=== PATIENT | female | born 1940 | race Caucasian/White ===

== ENCOUNTER → 2016-07-27 | Outpatient (CLI) | payer MEDICARE ==
--- NOTE | 2016-07-27 14:22 | REPMRS ---
Patient History The patient states she had a clinical breast exam in 07/07 Patient is postmenopausal, has history of cancer in the left breast at age 53, and had previous chemotherapy at age 53. No known family history of cancer. Malignant mastectomy of the left breast, 1993. Took tamoxifen for 5 years. Digital Woman Screen Mammo: July 27, 2016 - Exam #: [id number] Bilateral CC and MLO view(s) were taken. Technologist: Paola Dominguez, Technologist Prior study comparison: July 27, 2015, digital woman screen mammo performed at [facility]. July 23, 2014, digital woman screen mammo performed at [facility]. July 21, 2013, right breast bilat screen digital mammo, performed at [facility] ([facility]). FINDINGS: There are scattered fibroglandular densities. There has been no change in the appearance of the right breast parenchyma in the interval since the prior examination. No mass, architectural distortion, or microcalcific cluster has developed. No suspicious finding. ASSESSMENT: BI-RADS/ACR category 2 mammogram. Benign finding(s). Recommendation Routine screening mammogram in 1 year. This mammogram was interpreted with the aid of an FDA-approved computer-aided dectection system. Electronically Signed By: Finn Brock MD 07/27/16 9050
== END ==
LOC: M WHC 10:02
PROVIDERS: ATTEND Nurse Practitioner Family
DX: Z12.31 Encounter for screening mammogram for malignant neoplasm of breast (principal); Z85.3 Personal history of malignant neoplasm of breast; Z78.0 Asymptomatic menopausal state

== ENCOUNTER → 2016-08-08 | Outpatient (REF) | payer MEDICARE ==
[2016-08-08 11:59] LABS: ALBUMIN 3.6 GM/DL (3.2-5.2); ALKALINE PHOSPHATASE 59 U/L (45-117); ALT/SGPT 23 U/L (12-78); ANION GAP 4 MEQ/L (8-16); AST/SGOT 21 U/L (15-37); BILIRUBIN,TOTAL 0.5 MG/DL (0.2-1.0); BLOOD UREA NITROGEN 23 MG/DL (7-18); CARBON DIOXIDE LEVEL 31 MEQ/L (21-32); CHLORIDE LEVEL 106 MEQ/L (98-107); CREATININE FOR GFR 0.94 MG/DL (0.55-1.02); GLOMERULAR FILTRATION RATE > 60.0 (>39); GLUCOSE, FASTING 90 MG/DL (83-110); POTASSIUM SERUM 4.8 MEQ/L (3.5-5.1); SODIUM LEVEL 141 MEQ/L (136-145); TOTAL PROTEIN 6.6 GM/DL (6.4-8.2)
== END ==
LOC: M SFHCPLAZ 08:54
PROVIDERS: ATTEND Family Medicine
DX: E55.9 Vitamin D deficiency, unspecified (principal); R73.01 Impaired fasting glucose; E03.9 Hypothyroidism, unspecified

== ENCOUNTER → 2017-01-02 | Outpatient (CLI) | payer MEDICARE ==
--- NOTE | 2017-01-02 12:28 | REP ---
Clinical: Cervicalgia. Technique: AP, lateral, flexion/extension, bilateral oblique, and open-mouth views of the cervical spine. Findings: Advanced multilevel degenerative changes include osteophytosis, endplate sclerosis, disc space narrowing and facet arthropathy. Alignment and lordosis is maintained. There is no evidence for acute fracture / compression injury or subluxation. Open mouth view demonstrates normal C1-C2 articulation and odontoid process. Partially calcified left thyroid cyst suggested. Impression: 1. Advanced multilevel degenerative changes. No evidence for acute fracture / compression injury or subluxation. 2. Possible partially calcified left thyroid cyst. Signed by Jeremias Grover MD 01/02/2017 12:19 P
== END ==
LOC: M WUC 11:56
PROVIDERS: ATTEND Physician Assistant
DX: M54.2 Cervicalgia (principal)

== ENCOUNTER → 2017-01-15 | Outpatient (REF) | payer MEDICARE ==
[2017-01-15 14:02] LABS: CHOLESTEROL LEVEL 237 MG/DL (<200); TRIGLYCERIDES LEVEL 194 MG/DL (<150)
== END ==
LOC: M SFHCPLAZ 10:55
PROVIDERS: ATTEND Family Medicine
DX: E78.5 Hyperlipidemia, unspecified (principal); R73.01 Impaired fasting glucose
CPT/HCPCS: 36415; 80061; 81001; 82043; 82550; 83036; 86140; G0463

== ENCOUNTER → 2017-06-08 | Outpatient (REF) | payer MEDICARE ==
[2017-06-08 13:25] LABS: BASO # 0.1 10^3/uL (0.0-0.2); BASO % 1.2 % (0.0-1.0); EOS # 0.2 10^3/uL (0.0-0.50); EOS % 3.2 % (0.0-3.0); HEMATOCRIT 44.6 % (36.0-47.0); HEMOGLOBIN 14.8 g/dl (12.0-16.0); IMMATURE GRANULOCYTE % 0.3 % (0-3.0); LYMPH # 2.1 10^3/uL (1.5-4.5); LYMPH % 28.2 % (24.0-44.0); MEAN CORPUSCULAR HEMOGLOBIN 29.7 pg (27.0-33.0); MEAN CORPUSCULAR HGB CONC 33.2 g/dl (32.0-36.5); MEAN CORPUSCULAR VOLUME 89.6 fl (80.0-96.0); MONO # 0.7 10^3/uL (0.0-0.8); MONO % 9.1 % (0.0-5.0); NEUTROPHILS # 4.2 10^3/uL (1.8-7.7); PLATELET COUNT, AUTOMATED 259 10^3/uL (150-450); RED BLOOD COUNT 4.98 10^6/uL (4.00-5.40); RED CELL DISTRIBUTION WIDTH 13.2 % (11.5-14.5); WHITE BLOOD COUNT 7.3 10^3/uL (4.0-10.0)
[2017-06-08 13:48] LABS: ESTIMATED AVERAGE GLUCOSE 120 MG/DL (60-110); HEMOGLOBIN A1c 5.8 %
[2017-06-08 13:49] LABS: APPEARANCE, URINE CLEAR (CLEAR); BACTERIA, URINE AUTO NEGATIVE (NEGATIVE); BILIRUBIN, URINE AUTO NEGATIVE (NEGATIVE); BLOOD, URINE BLOOD NEGATIVE (NEGATIVE); COLOR, URINE YELLOW (YELLOW); GLUCOSE, URINE (UA) AUTO NEGATIVE (NEGATIVE); KETONE, URINE AUTO NEGATIVE (NEGATIVE); LEUKOCYTE ESTERASE, URINE AUTO NEGATIVE (NEGATIVE); MUCUS, URINE SMALL (NEGATIVE); NITRITE, URINE AUTO NEGATIVE (NEGATIVE); PROTEIN, URINE AUTO NEGATIVE (NEGATIVE); RBC, URINE AUTO 4 /HPF (0-3); SPECIFIC GRAVITY URINE AUTO 1.021 (1.002-1.035); SQUAMOUS EPITHELIAL CELL UR AU 1 /HPF (0-6); UROBILINOGEN, URINE AUTO 0.2 mg/dL (0.0-2.0); WBC, URINE AUTO 0 /HPF (0-3)
[2017-06-08 14:03] LABS: PTH INTACT 66.5 PG/ML (18.5-88.0); TOTAL 25(OH) VITAMIN D 32.9 NG/ML (30.0-100.0)
[2017-06-08 14:07] LABS: ALBUMIN 3.7 GM/DL (3.2-5.2); ALBUMIN/GLOBULIN RATIO 1.16 (1.00-1.93); ALKALINE PHOSPHATASE 66 U/L (45-117); ALT/SGPT 30 U/L (12-78); ANION GAP 6 MEQ/L (8-16); AST/SGOT 25 U/L (7-37); BILIRUBIN,TOTAL 0.5 MG/DL (0.2-1.0); BLOOD UREA NITROGEN 18 MG/DL (7-18); CALCIUM LEVEL 8.9 MG/DL (8.8-10.2); CARBON DIOXIDE LEVEL 31 MEQ/L (21-32); CHLORIDE LEVEL 105 MEQ/L (98-107); CREATININE FOR GFR 0.86 MG/DL (0.55-1.30); FREE T4 1.07 NG/DL (0.76-1.46); GLOMERULAR FILTRATION RATE > 60.0 (>39); GLUCOSE, FASTING 78 MG/DL (70-100); POTASSIUM SERUM 4.6 MEQ/L (3.5-5.1); SODIUM LEVEL 142 MEQ/L (136-145); TOTAL PROTEIN 6.9 GM/DL (6.4-8.2)
[2017-06-09 10:10] LABS: H PYLORI SERUM QUANT IgG ABY 0.25 (0.00-0.79)
== END ==
LOC: M SFHCPLAZ 11:06
DX: E03.9 Hypothyroidism, unspecified (principal); R73.01 Impaired fasting glucose; E55.9 Vitamin D deficiency, unspecified; M17.0 Bilateral primary osteoarthritis of knee; R31.29 Other microscopic hematuria
CPT/HCPCS: 84443

== ENCOUNTER → 2017-06-21 | Outpatient (CLI) | payer MEDICARE ==
[2017-06-21 13:09] LABS: INR 1.04; PROTHROMBIN TIME 13.7 SECONDS (12.4-14.5)
[2017-06-21 13:51] LABS: ERYTHROCYTE SEDIMENTATION RATE 5 mm/hr (0-30)
== END ==
LOC: M ADMPAT 10:24
DX: M17.11 Unilateral primary osteoarthritis, right knee (principal); Z01.818 Encounter for other preprocedural examination; Z79.01 Long term (current) use of anticoagulants; Z79.899 Other long term (current) drug therapy
CPT/HCPCS: 71046

== ENCOUNTER 2017-07-03 07:17 | Inpatient (IN) | payer MEDICARE ==
[2017-07-03] MEDS: ACETAMINOPHEN 500 MG TAB PO (07:45)
[2017-07-03] MEDS: LR 1,000 ML IV ×3 (08:16→12:45)
[2017-07-03] MEDS ORDERED: fentaNYL 100 MCG/2 ML INJECTION (J3010) As Ordered (08:26)
[2017-07-03] MEDS ORDERED: MIDAZOLAM INJ 2 MG/2 ML VIAL (J2250) As Ordered ×3 (08:26→10:31)
[2017-07-03] MEDS: MIDAZOLAM INJ 2 MG/2 ML VIAL (J2250) IV (08:57)
[2017-07-03] MEDS: fentaNYL 100 MCG/2 ML INJECTION (J3010) IV (08:57)
[2017-07-03] MEDS: CitaloPRAM (CeleXA) 10 MG TABLET PO (09:00)
[2017-07-03] MEDS: EPINEPHrine INJ 1 MG/ML 1ML AMP As Ordered ×2 (10:05→11:05)
[2017-07-03] MEDS: LIDOCAINE 1% SDV INJ 30 ML VIAL As Ordered (10:22)
[2017-07-03] MEDS ORDERED: PHENYLEPHRINE INJ 10MG/ML VIAL (J2370) As Ordered (10:38)
[2017-07-03] MEDS ORDERED: PROPOFOL 200 MG/20 ML VIAL As Ordered (10:42)
[2017-07-03] MEDS ORDERED: LIDOCAINE 2% INJ 100 MG/5 ML SYRINGE As Ordered (10:49)
[2017-07-03] MEDS ORDERED: dexameTHASONE 10 MG/1 ML VIAL PRES.FREE (J1100) (10:51)
[2017-07-03] MEDS ORDERED: EPINEPHrine INJ 1 MG/ML 1ML AMP (10:51)
[2017-07-03] MEDS ORDERED: ROPIvacaine 0.5% 30 ML INJECTION (J2795 PER 1MG) (10:51)
[2017-07-03] MEDS: TRANEXAMIC ACID 100 MG/ML 10ML VIAL As Ordered (11:05)
[2017-07-03] MEDS: ceFAZolin 1GM INJ (J0690 PER 500MG) As Ordered (11:06)
[2017-07-03] MEDS: BUPIVACAINE HCL 0.25% 30 ML VIAL As Ordered (11:46)
[2017-07-03] MEDS: BUPIVACAINE LIPOSOME/PF 1.3% 20 ML VIAL (13.3MG/ML)(EXPAREL) As Ordered (11:47)
[2017-07-03] MEDS ORDERED: MORPHINE 1MG/ML IN 0.9% NACL 100ML IV BAG As Ordered (12:15)
[2017-07-03] MEDS ORDERED: ONDANSETRON 4MG/2ML VIAL (J2405) As Ordered (12:22)
[2017-07-03] MEDS: ONDANSETRON 4MG/2ML VIAL (J2405) IV (12:35)
[2017-07-03] MEDS ORDERED: FLEET ENEMA PR (12:45)
[2017-07-03] MEDS ORDERED: fentaNYL 100 MCG/2 ML INJECTION (J3010) IV (12:45)
[2017-07-03] MEDS ORDERED: ACETAMINOPHEN TAB 650MG DOSE (2X325MG) PO (12:45)
[2017-07-03] MEDS ORDERED: diphenhydrAMINE INJ 50MG/ML VIAL (J1200) IV (13:00)
[2017-07-03] MEDS ORDERED: NALOXONE INJ 0.4 MG/1 ML VIAL (J2310) IV (13:00)
[2017-07-03] MEDS ORDERED: MORPHINE 1MG/ML IN 0.9% NACL 100ML IV BAG IV (13:00)
[2017-07-03] MEDS ORDERED: EPIDURAL/PCA KEYS XX (13:00)
[2017-07-03] MEDS ORDERED: NALBUPHINE HCL 10 MG/ML AMP (J2300) IV (13:00)
[2017-07-03] MEDS ORDERED: ONDANSETRON 4MG/2ML VIAL (J2405) IV (13:00)
[2017-07-03] MEDS: WARFARIN SOD 5 MG TAB PO (17:17)
[2017-07-03] MEDS: ROSUVASTATIN 10 MG TAB (CRESTOR) PO (20:48)
[2017-07-04] MEDS: LR 1,000 ML IV (00:07)
[2017-07-04] MEDS: LEVOTHYROXINE 100MCG TABLET (0.1MG) PO (06:09)
[2017-07-04 07:03] LABS: HEMATOCRIT 37.6 % (36.0-47.0); HEMOGLOBIN 12.7 g/dl (12.0-16.0); MEAN CORPUSCULAR HEMOGLOBIN 29.9 pg (27.0-33.0); MEAN CORPUSCULAR HGB CONC 33.8 g/dl (32.0-36.5); MEAN CORPUSCULAR VOLUME 88.5 fl (80.0-96.0); PLATELET COUNT, AUTOMATED 223 10^3/uL (150-450); RED BLOOD COUNT 4.25 10^6/uL (4.00-5.40); RED CELL DISTRIBUTION WIDTH 13.6 % (11.5-14.5); WHITE BLOOD COUNT 13.4 10^3/uL (4.0-10.0)
[2017-07-04 07:14] LABS: INR 1.27; PROTHROMBIN TIME 16.2 SECONDS (12.4-14.5)
[2017-07-04 07:24] LABS: ANION GAP 7 MEQ/L (8-16); BLOOD UREA NITROGEN 23 MG/DL (7-18); CALCIUM LEVEL 8.2 MG/DL (8.8-10.2); CARBON DIOXIDE LEVEL 26 MEQ/L (21-32); CHLORIDE LEVEL 107 MEQ/L (98-107); CREATININE FOR GFR 0.89 MG/DL (0.55-1.30); GLOMERULAR FILTRATION RATE > 60.0 (>39); GLUCOSE, FASTING 124 MG/DL (70-100); POTASSIUM SERUM 4.1 MEQ/L (3.5-5.1); SODIUM LEVEL 140 MEQ/L (136-145)
[2017-07-04] MEDS: MIRALAX *UNIT DOSE* 17GM PACKET PO (08:33)
[2017-07-04] MEDS: MOM 30ML SUSPENSION UDC PO (08:33)
[2017-07-04] MEDS: SENOKOT S TAB PO ×2 (08:34→19:42)
[2017-07-04] MEDS: ONDANSETRON 4 MG TAB (S0181) PO ×2 (08:34→12:42)
[2017-07-04] MEDS: PERCOCET 5MG/325MG TAB PO ×3 (08:34→19:43)
[2017-07-04] MEDS: CitaloPRAM (CeleXA) 10 MG TABLET PO (08:34)
[2017-07-04] MEDS: WARFARIN SOD 5 MG TAB PO (17:45)
[2017-07-04] MEDS: ROSUVASTATIN 10 MG TAB (CRESTOR) PO (19:42)
[2017-07-04] MEDS: NS 500 ML IV (22:06)
[2017-07-05] MEDS: PERCOCET 5MG/325MG TAB PO ×4 (00:38→17:13)
[2017-07-05] MEDS: LEVOTHYROXINE 100MCG TABLET (0.1MG) PO (05:22)
[2017-07-05 06:06] LABS: HEMATOCRIT 34.8 % (36.0-47.0); HEMOGLOBIN 11.6 g/dl (12.0-16.0); MEAN CORPUSCULAR HEMOGLOBIN 30.1 pg (27.0-33.0); MEAN CORPUSCULAR HGB CONC 33.3 g/dl (32.0-36.5); MEAN CORPUSCULAR VOLUME 90.4 fl (80.0-96.0); PLATELET COUNT, AUTOMATED 192 10^3/uL (150-450); RED BLOOD COUNT 3.85 10^6/uL (4.00-5.40)
[2017-07-05 06:16] LABS: INR 1.72; PROTHROMBIN TIME 20.7 SECONDS (12.4-14.5)
[2017-07-05 06:31] LABS: ANION GAP 6 MEQ/L (8-16); BLOOD UREA NITROGEN 24 MG/DL (7-18); CALCIUM LEVEL 7.9 MG/DL (8.8-10.2); CARBON DIOXIDE LEVEL 30 MEQ/L (21-32); CHLORIDE LEVEL 103 MEQ/L (98-107); CREATININE FOR GFR 0.83 MG/DL (0.55-1.30); GLOMERULAR FILTRATION RATE > 60.0 (>39); GLUCOSE, FASTING 131 MG/DL (70-100); POTASSIUM SERUM 3.8 MEQ/L (3.5-5.1); SODIUM LEVEL 139 MEQ/L (136-145)
[2017-07-05] MEDS: MOM 30ML SUSPENSION UDC PO (09:39)
[2017-07-05] MEDS: MIRALAX *UNIT DOSE* 17GM PACKET PO (09:39)
[2017-07-05] MEDS: SENOKOT S TAB PO ×2 (09:40→20:04)
[2017-07-05] MEDS: CitaloPRAM (CeleXA) 10 MG TABLET PO (09:40)
[2017-07-05] MEDS: ONDANSETRON 4 MG TAB (S0181) PO ×2 (09:41→17:13)
[2017-07-05] MEDS: WARFARIN SOD 5 MG TAB PO (17:13)
[2017-07-05] MEDS: PREVNAR 13 VACCINE SYRINGE (CPT CODE:90670) IM (17:15)
[2017-07-05] MEDS: ROSUVASTATIN 10 MG TAB (CRESTOR) PO (20:04)
[2017-07-05] MEDS: NS 500 ML IV (23:00)
[2017-07-06] MEDS: PERCOCET 5MG/325MG TAB PO ×2 (02:07→09:56)
[2017-07-06] MEDS: LEVOTHYROXINE 100MCG TABLET (0.1MG) PO (05:54)
[2017-07-06 07:06] LABS: HEMATOCRIT 35.4 % (36.0-47.0); HEMOGLOBIN 11.8 g/dl (12.0-16.0); MEAN CORPUSCULAR HEMOGLOBIN 30.2 pg (27.0-33.0); MEAN CORPUSCULAR HGB CONC 33.3 g/dl (32.0-36.5); MEAN CORPUSCULAR VOLUME 90.5 fl (80.0-96.0); PLATELET COUNT, AUTOMATED 181 10^3/uL (150-450); RED BLOOD COUNT 3.91 10^6/uL (4.00-5.40); WHITE BLOOD COUNT 8.7 10^3/uL (4.0-10.0)
[2017-07-06 07:24] LABS: INR 2.24; PROTHROMBIN TIME 25.6 SECONDS (12.4-14.5)
[2017-07-06 07:25] LABS: ANION GAP 4 MEQ/L (8-16); BLOOD UREA NITROGEN 15 MG/DL (7-18); CALCIUM LEVEL 7.7 MG/DL (8.8-10.2); CARBON DIOXIDE LEVEL 31 MEQ/L (21-32); CHLORIDE LEVEL 107 MEQ/L (98-107); CREATININE FOR GFR 0.77 MG/DL (0.55-1.30); GLOMERULAR FILTRATION RATE > 60.0 (>39); GLUCOSE, FASTING 101 MG/DL (70-100); POTASSIUM SERUM 4.2 MEQ/L (3.5-5.1); SODIUM LEVEL 142 MEQ/L (136-145)
[2017-07-06] MEDS: MIRALAX *UNIT DOSE* 17GM PACKET PO (09:00)
[2017-07-06] MEDS: SENOKOT S TAB PO (09:55)
[2017-07-06] MEDS: CitaloPRAM (CeleXA) 10 MG TABLET PO (09:55)
[2017-07-06] MEDS: MOM 30ML SUSPENSION UDC PO (09:56)
== END 2017-07-06 16:02 | disposition home or self-care (01) | DRG 470 ==
LOC: M OR 07:17 → M MS5PR 13:15
PROC: 0SRC0J9 Replacement of Right Knee Joint with Synthetic Substitute, Cemented, Open Approach (ICD-10-PCS; principal; 2017-07-03 09:50)
DX: M17.11 Unilateral primary osteoarthritis, right knee (principal); E03.9 Hypothyroidism, unspecified; E78.00 Pure hypercholesterolemia, unspecified; R73.01 Impaired fasting glucose; E78.5 Hyperlipidemia, unspecified; Z85.3 Personal history of malignant neoplasm of breast; Z90.12 Acquired absence of left breast and nipple; Z96.651 Presence of right artificial knee joint; Z98.41 Cataract extraction status, right eye; Z98.42 Cataract extraction status, left eye; Z87.891 Personal history of nicotine dependence; Z79.899 Other long term (current) drug therapy; Z79.82 Long term (current) use of aspirin

== ENCOUNTER → 2017-07-09 | Outpatient (REF) | payer MEDICARE ==
[2017-07-09 14:13] LABS: INR 1.86
== END ==
LOC: M SHH 13:56
DX: Z51.81 Encounter for therapeutic drug level monitoring (principal); Z79.01 Long term (current) use of anticoagulants
CPT/HCPCS: 85610

== ENCOUNTER → 2017-07-12 | Outpatient (REF) | payer MEDICARE ==
[2017-07-12 15:42] LABS: INR 2.23; PROTHROMBIN TIME 25.5 SECONDS (12.4-14.5)
== END ==
LOC: M SHH 15:00
DX: Z79.01 Long term (current) use of anticoagulants (principal)
CPT/HCPCS: 85610

== ENCOUNTER → 2017-07-16 | Outpatient (REF) | payer MEDICARE ==
[2017-07-16 10:56] LABS: INR 1.88; PROTHROMBIN TIME 22.3 SECONDS (12.4-14.5)
== END ==
LOC: M LABDRAW1 09:47
DX: Z79.899 Other long term (current) drug therapy (principal); Z79.01 Long term (current) use of anticoagulants
CPT/HCPCS: 85610

== ENCOUNTER → 2017-07-19 | Outpatient (REF) | payer MEDICARE ==
[2017-07-19 15:29] LABS: PROTHROMBIN TIME 18.5 SECONDS (12.4-14.5)
== END ==
LOC: M SHH 15:04
DX: Z79.01 Long term (current) use of anticoagulants (principal)
CPT/HCPCS: 85610

== ENCOUNTER → 2017-07-23 | Outpatient (REF) | payer MEDICARE ==
[2017-07-23 19:19] LABS: INR 1.54; PROTHROMBIN TIME 18.9 SECONDS (12.4-14.5)
== END ==
LOC: M SHH 17:21
DX: Z51.81 Encounter for therapeutic drug level monitoring (principal); Z79.899 Other long term (current) drug therapy
CPT/HCPCS: 85610

== ENCOUNTER → 2017-07-26 | Outpatient (REF) | payer MEDICARE ==
[2017-07-26 15:38] LABS: INR 1.88; PROTHROMBIN TIME 22.2 SECONDS (12.4-14.5)
== END ==
LOC: M SHH 15:18
DX: Z79.01 Long term (current) use of anticoagulants (principal)
CPT/HCPCS: 85610

== ENCOUNTER → 2017-10-10 | Outpatient (CLI) | payer MEDICARE | LOC: M WHC 11:13 | DX: Z12.31 Encounter for screening mammogram for malignant neoplasm of breast (principal); Z85.3 Personal history of malignant neoplasm of breast; Z90.12 Acquired absence of left breast and nipple | CPT/HCPCS: 77067 ==

== ENCOUNTER → 2018-04-02 | Outpatient (REF) | payer MEDICARE ==
[2018-04-02 12:13] LABS: ALBUMIN 3.8 GM/DL (3.2-5.2); ALBUMIN/GLOBULIN RATIO 1.09 (1.00-1.93); ALKALINE PHOSPHATASE 73 U/L (45-117); ALT/SGPT 26 U/L (12-78); ANION GAP 7 MEQ/L (8-16); AST/SGOT 24 U/L (7-37); BILIRUBIN,TOTAL 0.5 MG/DL (0.2-1.0); BLOOD UREA NITROGEN 17 MG/DL (7-18); CALCIUM LEVEL 8.9 MG/DL (8.8-10.2); CARBON DIOXIDE LEVEL 28 MEQ/L (21-32); CHLORIDE LEVEL 103 MEQ/L (98-107); CREATININE FOR GFR 0.84 MG/DL (0.55-1.30); GLOMERULAR FILTRATION RATE > 60.0 (>39); GLUCOSE, FASTING 92 MG/DL (70-100); POTASSIUM SERUM 4.1 MEQ/L (3.5-5.1); SODIUM LEVEL 138 MEQ/L (136-145); TOTAL PROTEIN 7.3 GM/DL (6.4-8.2)
[2018-04-02 12:22] LABS: PTH INTACT 59.2 PG/ML (18.5-88.0); TOTAL 25(OH) VITAMIN D 49.3 NG/ML (30.0-100.0)
[2018-04-02 12:28] LABS: ESTIMATED AVERAGE GLUCOSE 126 MG/DL (60-110)
[2018-04-02 18:53] LABS: APPEARANCE, URINE CLEAR (CLEAR); BACTERIA, URINE AUTO NEGATIVE (NEGATIVE); BILIRUBIN, URINE AUTO NEGATIVE (NEGATIVE); BLOOD, URINE BLOOD 1+ (NEGATIVE); COLOR, URINE YELLOW (YELLOW); GLUCOSE, URINE (UA) AUTO NEGATIVE (NEGATIVE); KETONE, URINE AUTO NEGATIVE (NEGATIVE); LEUKOCYTE ESTERASE, URINE AUTO NEGATIVE (NEGATIVE); NITRITE, URINE AUTO NEGATIVE (NEGATIVE); PROTEIN, URINE AUTO NEGATIVE (NEGATIVE); RBC, URINE AUTO 3 /HPF (0-3); SPECIFIC GRAVITY URINE AUTO 1.015 (1.002-1.035); SQUAMOUS EPITHELIAL CELL UR AU 0 /HPF (0-6); UROBILINOGEN, URINE AUTO 0.2 mg/dL (0.0-2.0); WBC, URINE AUTO 1 /HPF (0-3)
[2018-04-02 22:31] LABS: MALB URINE SIEMENS 14.3 MG/L
[2018-04-03 14:21] LABS: INSULIN LEVEL 17.6 uIU/mL (2.6-24.9)
== END ==
LOC: M SFHCPLAZ 10:15
DX: E55.9 Vitamin D deficiency, unspecified (principal); R73.01 Impaired fasting glucose
CPT/HCPCS: 83525

== ENCOUNTER → 2018-04-08 | Outpatient (CLI) | payer MEDICARE ==
[~2018-04-08] MED LIST: ASPI1TAB PO; CALCTAB7 PO; CELE10TA PO; COUM2.5T17 PO; CRES40TA PO; FISH100049 PO; FLON1SPR; LEVO100T5; PERC5TAB12 PO; SIMV40TA2; VITA100067 PO
--- NOTE | 2018-04-09 08:12 | REP ---
Duplex carotid sonography: History: Bilateral carotid artery stenosis. Findings: Retrograde flow is noted in the right vertebral artery consistent with subclavian steal phenomenon. Antegrade flow was observed in the left vertebral artery. Right carotid: The right common carotid artery is unremarkable on two-dimensional scanning. There is focal soft plaquing in the proximal ICA and bulb on the right side on two-dimensional scanning. Color flow and spectral Doppler interrogation show normal velocities. The right ICA Doppler waveform is abnormal. Question distal ICA disease. Velocity chart right carotid: Right CCA PSV 33 cm/s Right ICA PSV 41 AUSTEN 0 Right ECA PSV 36 Right ICA/CCA ratio normal 1.2. Impression: 16-49% category narrowing in the right ICA by Doppler velocity criteria. Abnormal ICA Doppler waveform, question distal disease. Left carotid: The left common carotid artery is unremarkable on two-dimensional scanning. There is mild soft plaquing in the bulb and proximal ICA on the left side. Color flow and spectral Doppler interrogation on the left show slightly increased systolic velocity in the ICA. Velocity chart left carotid: Left CCA PSV 90 cm/s Left ICA PSV 137 AUSTEN 21 Left ECA PSV 109 Left ICA/CCA ratio normal 1.5. Impression: 16-49% category narrowing in the left ICA, probably near the upper end of this range. Vertebral flow was reversed on the right suggesting subclavian steal phenomenon. Electronically Signed by Abiodun Brock MD 04/09/2018 09:04 A
== END ==
LOC: M RAD 14:01
PROVIDERS: ATTEND Family Medicine
DX: I65.23 Occlusion and stenosis of bilateral carotid arteries (principal)

== ENCOUNTER → 2018-06-24 | Outpatient (CLI) | payer MEDICARE ==
[~2018-06-24] MED LIST changes: -LEVO100T5; +LEVO100T5 PO
[2018-06-24 09:03] LABS: HEMATOCRIT 42.3 % (36.0-47.0); HEMOGLOBIN 13.8 g/dl (12.0-15.5); MEAN CORPUSCULAR HEMOGLOBIN 29.9 pg (27.0-33.0); MEAN CORPUSCULAR HGB CONC 32.6 g/dl (32.0-36.5); MEAN CORPUSCULAR VOLUME 91.8 fl (80.0-96.0); PLATELET COUNT, AUTOMATED 241 10^3/uL (150-450); RED BLOOD COUNT 4.61 10^6/uL (4.00-5.40); WHITE BLOOD COUNT 5.8 10^3/uL (4.0-10.0)
[2018-06-24 09:30] LABS: INR 1.04; PROTHROMBIN TIME 13.8 SECONDS (12.1-14.4)
[2018-06-24 09:32] LABS: ALBUMIN 3.4 GM/DL (3.2-5.2); ALT/SGPT 31 U/L (12-78); BILIRUBIN,TOTAL 0.5 MG/DL (0.2-1.0); BLOOD UREA NITROGEN 17 MG/DL (7-18); CALCIUM LEVEL 8.6 MG/DL (8.8-10.2); CARBON DIOXIDE LEVEL 28 MEQ/L (21-32); CHLORIDE LEVEL 108 MEQ/L (98-107); CREATININE FOR GFR 0.82 MG/DL (0.55-1.30); GLOMERULAR FILTRATION RATE > 60.0 (>39); GLUCOSE, FASTING 88 MG/DL (70-100); POTASSIUM SERUM 4.4 MEQ/L (3.5-5.1); SODIUM LEVEL 143 MEQ/L (136-145); TOTAL PROTEIN 6.4 GM/DL (6.4-8.2)
[2018-06-24 09:40] LABS: ERYTHROCYTE SEDIMENTATION RATE 10 mm/hr (0-30)
--- NOTE | 2018-06-24 14:34 | ECGEPIP ---
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
--- NOTE | 2018-06-24 15:18 | REP ---
CHEST X-RAY: TWO VIEWS. HISTORY: Preoperative testing. COMPARISON STUDY: June 21, 2017 FINDINGS: The lungs are symmetrically aerated and free of infiltrate. The aorta and its major branches are calcified. Heart size is normal. Pulmonary vasculature is not increased. Pleural angles are sharp. There are degenerative changes in the thoracic spine. IMPRESSION: No active disease. Electronically Signed by Abiodun Brock MD 06/24/2018 03:26 P
== END ==
LOC: M LAB 08:17
PROVIDERS: ATTEND Orthopaedic Surgery
DX: Z01.818 Encounter for other preprocedural examination (principal); M17.12 Unilateral primary osteoarthritis, left knee; M51.34 Other intervertebral disc degeneration, thoracic region; E07.9 Disorder of thyroid, unspecified

== ENCOUNTER 2018-07-10 06:58 | Inpatient (IN) | payer MEDICARE ==
--- NOTE | 2018-07-05 13:28 | HPE ---
DATE OF ANTICIPATED ADMISSION: 07/10/2018 ATTENDING PHYSICIAN: Dr. Caraballo CHIEF COMPLAINT: Left knee pain and stiffness. HISTORY: The patient is a pleasant, 78-year-old female with progressively worsening left knee pain and stiffness. She failed to improve with conservative measures. She continues to have symptoms with weightbearing activities and activities of daily living. The patient consented for an elective left total knee arthroplasty with Dr. Caraballo for her continued symptoms. CURRENT MEDICATIONS: - meclizine 25 mg every 8 hours as needed - Synthroid 100 mcg daily - calcium with vitamin D 600/400 mg/units daily - Zyrtec 10 mg daily - Flonase 50 mcg 2 sprays in each nostril daily - vitamin D 2000 units daily - Celebrex 200 units daily - Celexa 20 mg daily - simvastatin 40 mg daily - fish oil 1200 mg daily - aspirin 81 mg daily ALLERGIES: CHANTIX. CHRONIC MEDICAL CONDITIONS: 1. Carotid artery disease. 2. ICA/vertebral stenosis. 3. Hyperlipidemia. 4. Hypothyroid. 5. Anxiety. 6. History of breast cancer with mastectomy on the left. 7. Suprapubic ventral hernia. 8. Multijoint osteoarthritis. 9. Allergic rhinitis. PAST SURGICAL HISTORY: 1. Appendectomy. 2. Bilateral blepharoplasty. 3. Colon surgery for benign mass. 4. Left breast mastectomy. 5. Dilation and curettage. 6. Bilateral cataracts. 7. Right total knee arthroplasty. FAMILY HISTORY: Noncontributory. SOCIAL HISTORY: The patient is a former smoker and occasionally uses alcohol. REVIEW OF SYSTEMS: The patient denies fevers, chills, nausea, vomiting or diarrhea. She denies chest pain, shortness of breath, lightheadedness, headaches or abdominal pain. She denies any recent upper respiratory or urinary tract infection symptoms. She continues to have left knee pain with weightbearing activities and activities of daily living. PHYSICAL EXAMINATION: GENERAL: Well-nourished, well-developed female, who appears to be in no apparent distress. She is alert, oriented and cooperative. Mood and affect are appropriate. VITAL SIGNS: Height 5 feet 3 inches, weight 162.3 pounds, temperature 97.7, blood pressure 128/84, heart rate 64, respirations 12. NECK: Supple without lymphadenopathy. HEART: Regular rate and rhythm. LUNGS: Clear to auscultation bilaterally. Breathing is regular and nonlabored. ABDOMEN: Nontender to palpation. Bowel sounds are present. MUSCULOSKELETAL: Left knee exhibits no gross abnormalities. There is tenderness along the medial joint line. The patient can only extend knee to about 5 degrees and flex to about 110 degrees. Left lower extremity strength is 5/5. No hip irritability elicited with range of motion testing. The patient's calf is soft, nontender to palpation with no palpable cords noted. She is neurovascularly intact distally. LABORATORY DATA: EKG: No active disease. LEFT KNEE X-RAY: Notable for end-stage degenerative changes. EKG: Sinus bradycardia. COMPREHENSIVE METABOLIC PROFILE: Fasting glucose of 88, BUN 17, creatinine for GFR 0.82, GFR greater than 60, sodium 143, potassium 4.4, chloride elevated at 108, carbon dioxide 28, anion gap decreased at 7, calcium decreased 8.6, AST 21, ALT 31, alkaline phosphatase 60, total bilirubin 0.5, total protein 6.4, albumin 3.4, albumin-globulin ratio 1.13. COMPLETE BLOOD COUNT: ESR 10, WBCs 5.8, RBCs 4.61, hemoglobin 13.8, hematocrit 42.3, platelets 241. Prothrombin time 13.8, INR 1.04. IMPRESSION: Left knee osteoarthritis with x-rays notable for end-stage degenerative changes. PLAN: The patient has consented for an elective left total knee arthroplasty with Dr. Caraballo for her continued symptoms. Medical optimization completed with Dr. Waters and was available for review during today's appointment. [facility] SYSTEM[facility]annet
[~2018-07-10] VITALS: Ht 162.6 cm; Wt 76.2 kg
[~2018-07-10 06:58] MED LIST changes: +LIDOCAINE 1% MDV 20ML VIAL SQ PRN
[2018-07-10] MEDS ORDERED: ACETAMINOPHEN 500 MG TAB PO ONE (07:00)
[2018-07-10] MEDS ORDERED: LR 1,000 ML IV ONE (07:00)
[2018-07-10] MEDS ORDERED: ceFAZolin 1GM INJ (J0690 PER 500MG) As Ordered ONE (07:13)
[2018-07-10] MEDS ORDERED: EPINEPHrine INJ 1 MG/ML 1ML AMP As Ordered ONE (07:14)
[2018-07-10] MEDS ORDERED: TRANEXAMIC ACID 100 MG/ML 10ML VIAL As Ordered ONE (07:14)
[2018-07-10] MEDS ORDERED: BUPIVACAINE HCL 0.25% 10 ML VIAL As Ordered ONE (07:15)
[2018-07-10] MEDS ORDERED: BUPIVACAINE LIPOSOME/PF 1.3% 20ML VIAL (13.3MG/ML)(EXPAREL)(C9290 PER1MG) As Ordered ONE (07:15)
[2018-07-10] MEDS ORDERED: MIDAZOLAM INJ 2 MG/2 ML VIAL (J2250) As Ordered ONE ×2 (08:05→08:18)
[2018-07-10] MEDS ORDERED: ONDANSETRON 4MG/2ML VIAL (J2405) As Ordered ONE (08:05)
[2018-07-10] MEDS ORDERED: fentaNYL 100 MCG/2 ML INJECTION (J3010) As Ordered ONE ×2 (08:05→08:18)
[2018-07-10] MEDS ORDERED: PROPOFOL 200 MG/20 ML VIAL As Ordered ONE (08:05)
[2018-07-10] MEDS ORDERED: LIDOCAINE 2% INJ 100 MG/5 ML SDV (FOR ANES.) As Ordered ONE (08:05)
[2018-07-10] MEDS: ePHEDrine SULFATE 25 MG/5 ML(5MG/ML) SYRINGE IV PRN ×2 (08:55→08:58)
[2018-07-10] MEDS ORDERED: MIDAZOLAM INJ 2 MG/2 ML VIAL (J2250) IV ONE (09:00)
[2018-07-10] MEDS ORDERED: MIDAZOLAM INJ 2 MG/2 ML VIAL (J2250) IV PRN (09:00)
[2018-07-10] MEDS ORDERED: fentaNYL 100 MCG/2 ML INJECTION (J3010) IV PRN ×2 (09:00→12:30)
[2018-07-10] MEDS ORDERED: fentaNYL 100 MCG/2 ML INJECTION (J3010) IV ONE (09:00)
[2018-07-10] MEDS: PHENYLephrine HCL 500 MCG/5 ML (100MCG/ML) SYRINGE (J2370) IV PRN ×2 (09:12→09:39)
[2018-07-10] MEDS ORDERED: LACTATED RINGER'S 1000 ML IV ONE (09:15)
[2018-07-10] MEDS ORDERED: dexameTHASONE 10 MG/1 ML VIAL PRES.FREE (J1100) ONE (09:40)
[2018-07-10] MEDS ORDERED: ROPIvacaine 0.5% 30 ML INJECTION (J2795 PER 1MG) ONE (09:40)
[2018-07-10] MEDS ORDERED: EPINEPHrine INJ 1 MG/ML 1ML AMP ONE (09:40)
[2018-07-10] MEDS ORDERED: BUPIVACAINE/DEXTROSE 0.75% 2 ML AMP As Ordered ONE (10:12)
[2018-07-10] MEDS ORDERED: LR 250 ML IV ONE (10:45)
[2018-07-10] MEDS ORDERED: PERCOCET 5MG/325MG TAB PO PRN ×3 (12:30→17:30)
[2018-07-10] MEDS ORDERED: METOCLOPRAMIDE INJ 10MG/2ML VIAL (J2765) IV PRN (12:30)
[2018-07-10] MEDS ORDERED: ONDANSETRON 4MG/2ML VIAL (J2405) IV PRN (12:30)
[2018-07-10] MEDS ORDERED: MEPERIDINE INJ 25 MG/ML VIAL (J2175) IV PRN (12:30)
[2018-07-10] MEDS ORDERED: FLEET ENEMA PR PRN (12:30)
[2018-07-10] MEDS ORDERED: ACETAMINOPHEN TAB 650MG DOSE (2X325MG) PO PRN (12:30)
[2018-07-10] MEDS: LR 1,000 ML IV SCH (12:30)
[2018-07-10] MEDS ORDERED: LR 1,000 ML IV SCH (12:30)
[2018-07-10 14:00] VITALS: BP 107/59
--- NOTE | 2018-07-10 14:47 | REP ---
LEFT KNEE SERIES: Two views. HISTORY: Postop. Comparison radiographs July 30, 2011. FINDINGS: The left knee arthroplasty has been installed. Patellar, femoral, and tibial prosthetic components are well aligned with respect to each other and their one[place] bones. There is interarticular and periarticular soft tissue gas. Anterior skin burt are seen. IMPRESSION: Status post left knee arthroplasty. Electronically Signed by Abiodun Brock MD 07/10/2018 05:15 P
[2018-07-10 15:00] VITALS: BP 95/60
[2018-07-10 16:00] VITALS: BP 93/60
[2018-07-10] MEDS: CitaloPRAM (CeleXA) 10 MG TABLET PO SCH (16:48)
[2018-07-10] MEDS: VITAMIN D 1,000 INTERNATIONAL UNITS TABLET PO SCH (16:48)
[2018-07-10 17:00] VITALS: BP 90/57
[2018-07-10 18:00] VITALS: BP 89/56
[2018-07-10] MEDS: OMEGA-3 1000MG CAPSULE PO SCH (20:11)
[2018-07-10] MEDS ORDERED: ROSUVASTATIN 10 MG TAB (CRESTOR) PO SCH (21:00)
[2018-07-10 22:00] VITALS: BP 90/54
[2018-07-11] MEDS: LR 1,000 ML IV SCH (01:00)
[2018-07-11 02:00] VITALS: BP 96/50
--- NOTE | 2018-07-11 02:24 | IPNPDOC ---
Subjective Date Seen The patient was seen on 07/10/18. Subjective Chief Complaint/HPI *For medicine consult, see Dr. Waters's preop 07/01. Patient seen s/p L TKA. She reports good pain control, denies nausea, vomiting, or any distress. Constitutional: Denies: Chills, Fever, Malaise Pulmonary: Denies: Dyspnea, Cough Cardiovascular: Denies: Chest Pain Gastrointestinal: Denies: Nausea, Vomiting, Diarrhea, Constipation Musculoskeletal: Denies: Joint Pain Neurological: Reports: Confusion Objective Physical Examination General Exam: Positive: Alert, Cooperative, No Acute Distress Eye Exam: Positive: Conjunctiva & lids normal ENT Exam: Positive: Atraumatic, Mucous membr. moist/pink, Pharynx Normal, Tongue Midline Neck Exam: Positive: Supple Chest Exam: Positive: Clear to auscultation, Normal air movement Heart Exam: Positive: Rate Normal Abdomen Exam: Positive: Normal bowel sounds, Soft; Negative: Tenderness Skin Exam: Positive: Nl turgor and temperature; Negative: Rash Neuro Exam: Positive: Normal Speech; Negative: Normal Gait (patient had not yet ambulated after surgery) Psych Exam: Positive: Mental status NL, Mood NL Assessment /Plan Problems (1) Status post total left knee replacement Permanent Comment: 06/2018 Last Edited By: Ama Cardona DO on Jul 11, 2018 02:22 Status: Acute Problem Text: Pain currently well-controlled. At time of visit, patient had not yet ambulated or worked with PT. (2) Hyperlipidemia Status: Chronic Problem Text: Continue Crestor. (3) Hypothyroidism Problem Text: Continue Synthroid. Plan/VTE VTE Prophylaxis Ordered?: Yes VS, I&O, 24H, Fishbone Vital Signs/I&O Vital Signs Date Time Temp Pulse Resp B/P (MAP) Pulse Ox O2 Delivery O2 Flow Rate FiO2 07/11/18 02:00 97.9 73 18 96/50 (65) 95 2.0 I&O- Last 24 Hours up to 6 AM 07/11/18 06:00 Intake Total 1480 ml Output Total 1750 ml Balance -270 ml AMA CARDONA DO Jul 11, 2018 02:24
[2018-07-11 06:00] VITALS: BP 95/52
[2018-07-11] MEDS ORDERED: LEVOTHYROXINE 100MCG TABLET (0.1MG) PO SCH (06:00)
[2018-07-11 06:26] LABS: HEMATOCRIT 36.9 % (36.0-47.0); HEMOGLOBIN 12.4 g/dl (12.0-15.5); MEAN CORPUSCULAR HEMOGLOBIN 30.6 pg (27.0-33.0); MEAN CORPUSCULAR HGB CONC 33.6 g/dl (32.0-36.5); MEAN CORPUSCULAR VOLUME 91.1 fl (80.0-96.0); PLATELET COUNT, AUTOMATED 229 10^3/uL (150-450); RED BLOOD COUNT 4.05 10^6/uL (4.00-5.40)
[2018-07-11 06:53] LABS: BLOOD UREA NITROGEN 22 MG/DL (7-18); CALCIUM LEVEL 7.9 MG/DL (8.8-10.2); CARBON DIOXIDE LEVEL 26 MEQ/L (21-32); CHLORIDE LEVEL 112 MEQ/L (98-107); CREATININE FOR GFR 0.88 MG/DL (0.55-1.30); GLOMERULAR FILTRATION RATE > 60.0 (>39); GLUCOSE, FASTING 109 MG/DL (70-100); POTASSIUM SERUM 4.1 MEQ/L (3.5-5.1); SODIUM LEVEL 144 MEQ/L (136-145)
[2018-07-11] MEDS ORDERED: XARE10TA PO (06:56)
[2018-07-11] MEDS ORDERED: TYLE500T78 PO (06:56)
[2018-07-11] MEDS ORDERED: TRAM50TA2 PO (06:56)
[2018-07-11] MEDS ORDERED: ACETAMINOPHEN 500 MG TAB PO PRN (07:15)
--- NOTE | 2018-07-11 08:11 | RO ---
DATE OF PROCEDURE: 07/10/2018 PREPROCEDURE DIAGNOSIS: Left knee degenerative arthritis. POSTPROCEDURE DIAGNOSIS: Left knee degenerative arthritis. PROCEDURE: Left total knee arthroplasty using a size 4 cruciate retaining femoral component with a size 4 tibial tray and a 5 mm rotating platform polyethylene insert and a 32 mm polyethylene button. All components were cemented. Prosthesis made by [employer]. It was an Attuned knee. SURGEON: Dr. Alexei Caraballo. MOTTLE LAY UP OPERATOR: Ms. Loreto Joyce. ANESTHESIA: Spinal with left femoral nerve block. COMPLICATIONS: None. SPECIMENS: Joint surface. ESTIMATED BLOOD LOSS: Less than 20 mL. PROCEDURE: After antibiotics were given intravenously preoperatively and successful spinal and left femoral nerve block anesthetic was established, a tourniquet was placed on the left upper thigh and not inflated. The left lower extremity was carefully prepped and draped in the usual sterile fashion, elevated and after appropriate time out, the tourniquet was inflated and then a longitudinal incision was made for a medial parapatellar approach to the knee. Bovie cautery was used to coagulate crossing vessels. Subperiosteal dissection was carried out around the proximal and medial tibia and the proximal lateral tibia. Then we everted the patella and flexed the knee. ACL was debrided. Drill was placed down the center of the femoral canal followed by the intramedullary lenard and the distal femoral cutting jig set at a 5 degree valgus cut for a left knee at 9 mm resection level. The block was pinned into position. Distal femoral cut performed. The AP sizer jig measured for a size 4. Three degrees of rotation were dialed in and the pins were placed followed by the 4-in-1 block and then the anterior posterior chamfer cuts performed without difficulty. The notch template was applied and then the notch performed around the anterior part of the femur. We then exposed the proximal tibia, used the extramedullary alignment jig to estimate being parallel to the mechanical axis of the tibia referencing off the medial tibial condyle at 4 mm resection level. The block was pinned into position. Secondary check with extramedullary lenard confirmed we appeared to be parallel and then we performed the proximal tibial osteotomy. The laminar software implementation specialist was then placed laterally and we performed a completion medial meniscectomy. Debridement of the posterior and medial osteophytes. Then we placed the alignment software implementation specialist medially and performed a completion lateral meniscectomy, debridement of posterior lateral osteophytes. We then trialed with a spacer block the 5 and seemed to have given the best range of motion in flexion and in extension. We then exposed the proximal tibia size for a #4 tray which was pinned into position followed by the reamer and broach. The trial was placed followed by the trial femoral component which fit nicely and she had excellent flexion and extension ability. There is some slight mild asymmetry between medial and lateral laxity but it was very acceptable I felt. With the knee in extension, I everted the patella and performed a patellar osteotomy size for a 32 button. Lug holes were drilled. Trial placed and the patellofemoral tracking was anatomic. We then drilled the lug holes for the femur, removed all the trial components and then copiously pulsatile, lavage, irrigated out the knee joint as I did several times throughout the operation. We placed Exparel in the subperiosteal tissues around the distal femur and the proximal tibia and then Jessa Loreto Joyce mixed the cement on the back table as I prepared the bony surfaces for cementing by applying copious amount of pulsatile lavage irrigant solution and drying all the bony surfaces thoroughly. She was also critical to the success of this difficult surgery by helping to manipulate the knee, helping with soft tissue retraction, helping to prepare the patient, help to close the wound and help to manipulate the knee so I could perform the operation smoothly, efficiently and safely. We then cemented the tibial tray, removed excess cement, placed the polyethylene, cemented the femoral component, removed the excess cement, brought the knee into extension, everted the patella, then cemented the patellar button and held it with a clamp, and then we removed the excess cement and held this position in extension until the cement hardened. As we were waiting this, we copiously pulsatile, lavage, irrigated out the knee joint and then applied tranexamic acid and then began closing the arthrotomy with two apex #1 PDS sutures, the medial parapatellar area was closed with interrupted #1 PDS sutures and the capsule was closed with a running #1 double arm PDS Stratafix suture. Then the tourniquet was released. We irrigated again between layers, closed the deep subdermal tissues with interrupted #2-0 PDS sutures, skin was closed with burt covered by an Optifoam and a dry sterile bulky dressing and she was then transferred to the recovery room in stable condition. There were no intraoperative complications.
[2018-07-11] MEDS: VITAMIN D 1,000 INTERNATIONAL UNITS TABLET PO SCH (08:27)
[2018-07-11] MEDS: OMEGA-3 1000MG CAPSULE PO SCH (08:27)
[2018-07-11] MEDS: CitaloPRAM (CeleXA) 10 MG TABLET PO SCH (08:28)
[2018-07-11] MEDS ORDERED: MIRALAX *UNIT DOSE* 17GM PACKET PO SCH (09:00)
[2018-07-11] MEDS ORDERED: PERCOCET 5MG/325MG TAB PO PRN (09:15)
[2018-07-11] MEDS ORDERED: ONDANSETRON 4 MG TAB (S0181) PO PRN (11:15)
[2018-07-11] MEDS ORDERED: traMADol 50 MG TAB PO PRN ×2 (11:15)
[2018-07-11] MEDS ORDERED: RIVAROXABAN 10 MG TAB (XARELTO) PO SCH (18:00)
[2018-07-11] MEDS ORDERED: MOM 30ML SUSPENSION UDC PO SCH (21:00)
== END 2018-07-11 14:40 | disposition home or self-care (01) | DRG 470 ==
LOC: M OR 06:58 → M MS5PR 13:35
PROVIDERS: ADMIT Orthopaedic Surgery; ATTEND Orthopaedic Surgery
PROC: 0SRD0J9 Replacement of Left Knee Joint with Synthetic Substitute, Cemented, Open Approach (ICD-10-PCS; principal; 2018-07-10 10:00)
DX: M17.12 Unilateral primary osteoarthritis, left knee (principal); E78.5 Hyperlipidemia, unspecified; E03.9 Hypothyroidism, unspecified; F41.9 Anxiety disorder, unspecified; J30.9 Allergic rhinitis, unspecified; I65.23 Occlusion and stenosis of bilateral carotid arteries; Z85.3 Personal history of malignant neoplasm of breast; Z90.12 Acquired absence of left breast and nipple; Z79.899 Other long term (current) drug therapy; Z96.651 Presence of right artificial knee joint; Z98.41 Cataract extraction status, right eye; Z98.42 Cataract extraction status, left eye; Z87.891 Personal history of nicotine dependence; Z88.8 Allergy status to other drugs, medicaments and biological substances; Z79.82 Long term (current) use of aspirin

== ENCOUNTER → 2019-01-14 | Outpatient (REF) | payer MEDICARE ==
[~2019-01-14] MED LIST changes: -ASPI1TAB PO; +ASPI81TA26 PO; -LIDOCAINE 1% MDV 20ML VIAL SQ PRN; +TRAM50TA2 PO; +TYLE500T78 PO; +XARE10TA PO
[2019-01-14 13:06] LABS: ALBUMIN 3.7 GM/DL (3.2-5.2); ALT/SGPT 22 U/L (12-78); BILIRUBIN,TOTAL 0.6 MG/DL (0.2-1.0); BLOOD UREA NITROGEN 18 MG/DL (7-18); CALCIUM LEVEL 8.8 MG/DL (8.8-10.2); CARBON DIOXIDE LEVEL 27 MEQ/L (21-32); CHLORIDE LEVEL 108 MEQ/L (98-107); CHOLESTEROL LEVEL 149 MG/DL (<200); CREATININE FOR GFR 0.92 MG/DL (0.55-1.30); FREE T4 1.13 NG/DL (0.76-1.46); GLOMERULAR FILTRATION RATE > 60.0 (>39); GLUCOSE, FASTING 89 MG/DL (70-100); HDL CHOLESTEROL 49 MG/DL (>40); LDL CHOLESTEROL 78 MG/DL (<100); NON-HDL-C 100 MG/DL; POTASSIUM SERUM 4.7 MEQ/L (3.5-5.1); SODIUM LEVEL 140 MEQ/L (136-145); TOTAL PROTEIN 6.7 GM/DL (6.4-8.2); TRIGLYCERIDES LEVEL 110 MG/DL (<150)
[2019-01-14 13:30] LABS: HEMOGLOBIN A1c 5.5 %
== END ==
LOC: M SFHCPLAZ 10:18
PROVIDERS: ATTEND Physician Assistant Medical
DX: R73.01 Impaired fasting glucose (principal); E78.5 Hyperlipidemia, unspecified

== ENCOUNTER → 2019-02-05 | Outpatient (CLI) | payer MEDICARE ==
--- NOTE | 2019-02-05 15:57 | REPMRS ---
Patient History The patient states she has not had a clinical breast exam in over a year. No known family history of cancer. Malignant mastectomy of the left breast, 1993. Took tamoxifen for 5 years. Digital Woman Screen Mammo: February 05, 2019 - Exam #: [id number] Bilateral CC and MLO view(s) were taken. Technologist: Dora Gonzalez, Technologist Prior study comparison: October 10, 2017, bilateral digital woman screen mammo performed at [facility]. July 27, 2016, digital woman screen mammo performed at [facility]. July 27, 2015, digital woman screen mammo performed at [facility]. FINDINGS: There are scattered fibroglandular densities. There has been no change in the appearance of the right breast parenchyma in the interval since the prior examination. No mass, architectural distortion, or microcalcific grouping has developed. No suspicious finding. 3-D tomosynthesis shows no additional findings. Assessment: BI-RADS/ACR category 2 mammogram. Benign Findings. Recommendation Routine screening mammogram of the right breast in 1 year. This mammogram was interpreted with the aid of an FDA-approved computer-aided dectection system. Electronically Signed By: Finn Brock MD 02/05/19 0700
== END ==
LOC: M WHC 11:15
PROVIDERS: ATTEND Family Medicine
DX: Z12.31 Encounter for screening mammogram for malignant neoplasm of breast (principal); Z85.3 Personal history of malignant neoplasm of breast; Z90.12 Acquired absence of left breast and nipple

== ENCOUNTER → 2019-02-17 | Outpatient (REF) | payer MEDICARE ==
[2019-02-17 12:30] LABS: BASO # 0.1 10^3/uL (0.0-0.2); EOS # 0.2 10^3/uL (0.0-0.5); EOS % 2.6 % (0.0-3.0); HEMATOCRIT 40.5 % (36.0-47.0); HEMOGLOBIN 13.4 g/dl (12.0-15.5); LYMPH # 1.4 10^3/uL (1.5-5.0); LYMPH % 19.6 % (24.0-44.0); MEAN CORPUSCULAR HGB CONC 33.1 g/dl (32.0-36.5); MEAN CORPUSCULAR VOLUME 90.6 fl (80.0-96.0); MONO # 0.6 10^3/uL (0.0-0.8); MONO % 8.6 % (0.0-5.0); NEUTROPHILS % 67.9 % (36.0-66.0); PLATELET COUNT, AUTOMATED 243 10^3/uL (150-450); RED BLOOD COUNT 4.47 10^6/uL (4.00-5.40); WHITE BLOOD COUNT 7.3 10^3/uL (4.0-10.0)
[2019-02-17 12:50] LABS: ERYTHROCYTE SEDIMENTATION RATE 10 mm/hr (0-30)
== END ==
LOC: M LABDRAW1 11:54
PROVIDERS: ATTEND Orthopaedic Surgery
DX: T84.84XA Pain due to internal orthopedic prosthetic devices, implants and grafts, initial encounter (principal)

== ENCOUNTER → 2019-02-25 | Outpatient (CLI) | payer MEDICARE ==
--- NOTE | 2019-02-25 15:16 | REP ---
THREE-PHASE BONE SCAN OF THE KNEES: HISTORY: Rule out loosening, left knee arthroplasty. Left knee pain. Left knee arthroplasty July 10, 2018. Right knee arthroplasty in 2018. TECHNIQUE: 21.8 mCi technetium 99m MDP is injected and standard three-phase imaging was acquired. SCINTIGRAPHIC FINDINGS: Anterior posterior flow study shows normal symmetric perfusion in the lower extremities. Blood pool image shows minimally increased uptake associated with the tibial femoral and patellar components of the arthroplasty bilaterally. Delayed scan images demonstrate interface uptake at the tibial, femoral and patellar bone prosthetic interfaces bilaterally, left a little more prominently than right. This interface uptake pattern is diffuse. The slight asymmetry is consistent with a more recent arthroplasty being left-sided. There is no focally increased uptake to suggest loosening or infection. Electronically Signed by Abiodun Brock MD 02/25/2019 03:33 P
== END ==
LOC: M RAD 09:46
PROVIDERS: ATTEND Orthopaedic Surgery
DX: T84.84XA Pain due to internal orthopedic prosthetic devices, implants and grafts, initial encounter (principal)
CPT/HCPCS: 78315; A9503

== ENCOUNTER → 2019-09-02 | Outpatient (REF) | payer MEDICARE ==
[~2019-09-02] MED LIST changes: -SIMV40TA2; +SIMV40TA20
[2019-09-02 16:02] LABS: BASO # 0.1 10^3/uL (0.0-0.2); BASO % 1.7 % (0.0-1.0); EOS # 0.3 10^3/uL (0.0-0.5); EOS % 3.6 % (0.0-3.0); HEMATOCRIT 45.1 % (36.0-47.0); HEMOGLOBIN 14.9 g/dl (12.0-15.5); LYMPH # 2.3 10^3/uL (1.5-5.0); MEAN CORPUSCULAR HEMOGLOBIN 30.7 pg (27.0-33.0); MONO # 0.7 10^3/uL (0.0-0.8); MONO % 9.3 % (0.0-5.0); NEUTROPHILS # 3.9 10^3/uL (1.5-8.5); NEUTROPHILS % 53.1 % (36.0-66.0); PLATELET COUNT, AUTOMATED 251 10^3/uL (150-450); RED BLOOD COUNT 4.85 10^6/uL (4.00-5.40); WHITE BLOOD COUNT 7.2 10^3/uL (4.0-10.0)
[2019-09-02 16:16] LABS: ALBUMIN 3.6 GM/DL (3.2-5.2); ALT/SGPT 35 U/L (12-78); BILIRUBIN,TOTAL 0.6 MG/DL (0.2-1.0); BLOOD UREA NITROGEN 18 MG/DL (7-18); CALCIUM LEVEL 8.9 MG/DL (8.8-10.2); CARBON DIOXIDE LEVEL 31 MEQ/L (21-32); CHLORIDE LEVEL 108 MEQ/L (98-107); CREATININE FOR GFR 0.81 MG/DL (0.55-1.30); FREE T4 1.33 NG/DL (0.76-1.46); GLOMERULAR FILTRATION RATE > 60.0 (>39); GLUCOSE, FASTING 87 MG/DL (70-100); POTASSIUM SERUM 4.5 MEQ/L (3.5-5.1); SODIUM LEVEL 142 MEQ/L (136-145); THYROID STIMULATING HORMONE 0.426 uIU/ML (0.358-3.740); TOTAL PROTEIN 6.7 GM/DL (6.4-8.2)
[2019-09-02 16:17] LABS: PTH INTACT 90.3 PG/ML (18.5-88.0); TOTAL 25(OH) VITAMIN D 39.8 NG/ML (30.0-100.0)
== END ==
LOC: M SFHCPLAZ 12:26
PROVIDERS: ATTEND Family Medicine
DX: R73.01 Impaired fasting glucose (principal); E55.9 Vitamin D deficiency, unspecified; E03.9 Hypothyroidism, unspecified

== ENCOUNTER → 2020-01-16 | Outpatient (CLI) | payer MEDICARE ==
[~2020-01-16] MED LIST changes: +CALC-211 PO; -CALCTAB7 PO
[2020-01-16 14:09] LABS: APPEARANCE, URINE CLEAR (CLEAR); BACTERIA, URINE AUTO 1+ (NEGATIVE); BILIRUBIN, URINE AUTO NEGATIVE (NEGATIVE); BLOOD, URINE BLOOD 1+ (NEGATIVE); COLOR, URINE YELLOW (YELLOW); GLUCOSE, URINE (UA) AUTO NEGATIVE (NEGATIVE); HEMATOCRIT 45.6 % (36.0-47.0); HEMOGLOBIN 14.8 g/dl (12.0-15.5); KETONE, URINE AUTO NEGATIVE (NEGATIVE); LEUKOCYTE ESTERASE, URINE AUTO NEGATIVE (NEGATIVE); MEAN CORPUSCULAR HEMOGLOBIN 29.9 pg (27.0-33.0); MEAN CORPUSCULAR HGB CONC 32.5 g/dl (32.0-36.5); MEAN CORPUSCULAR VOLUME 92.1 fl (80.0-96.0); MUCUS, URINE SMALL (NEGATIVE); NITRITE, URINE AUTO NEGATIVE (NEGATIVE); PLATELET COUNT, AUTOMATED 264 10^3/uL (150-450); PROTEIN, URINE AUTO NEGATIVE (NEGATIVE); RBC, URINE AUTO 1 /HPF (0-3); RED BLOOD COUNT 4.95 10^6/uL (4.00-5.40); SPECIFIC GRAVITY URINE AUTO 1.018 (1.002-1.035); SQUAMOUS EPITHELIAL CELL UR AU 0 /HPF (0-6); UROBILINOGEN, URINE AUTO 0.2 mg/dL (0.0-2.0); WBC, URINE AUTO 0 /HPF (0-3); WHITE BLOOD COUNT 6.9 10^3/uL (4.0-10.0)
[2020-01-16 14:19] LABS: INR 1.01; PROTHROMBIN TIME 13.5 SECONDS (12.5-14.3)
[2020-01-16 14:20] LABS: PARTIAL THROMBOPLASTIN TIME 28.5 SECONDS (24.2-38.5)
[2020-01-16 14:24] LABS: ALBUMIN 3.8 GM/DL (3.2-5.2); ALT/SGPT 28 U/L (12-78); BILIRUBIN,TOTAL 0.5 MG/DL (0.2-1.0); BLOOD UREA NITROGEN 17 MG/DL (7-18); CALCIUM LEVEL 9.2 MG/DL (8.8-10.2); CARBON DIOXIDE LEVEL 29 MEQ/L (21-32); CHLORIDE LEVEL 107 MEQ/L (98-107); GLOMERULAR FILTRATION RATE > 60.0 (>39); GLUCOSE, FASTING 100 MG/DL (70-100); HEMOGLOBIN A1c 5.5 %; POTASSIUM SERUM 4.4 MEQ/L (3.5-5.1); SODIUM LEVEL 140 MEQ/L (136-145); THYROID STIMULATING HORMONE 0.444 uIU/ML (0.358-3.740); THYROXINE (T4) 12.6 UG/DL (4.5-12.0); TOTAL PROTEIN 6.9 GM/DL (6.4-8.2)
== END ==
LOC: M PLALAB 11:43
PROVIDERS: ATTEND Family Medicine
DX: I10 Essential (primary) hypertension (principal); E03.9 Hypothyroidism, unspecified; R73.01 Impaired fasting glucose; Z79.899 Other long term (current) drug therapy

== ENCOUNTER → 2020-06-17 | Outpatient (REF) | payer MEDICARE ==
[2020-06-17 13:49] LABS: ALBUMIN 3.6 GM/DL (3.2-5.2); ALT/SGPT 29 U/L (12-78); BILIRUBIN,TOTAL 0.4 MG/DL (0.2-1.0); BLOOD UREA NITROGEN 23 MG/DL (7-18); CALCIUM LEVEL 9.2 MG/DL (8.8-10.2); CARBON DIOXIDE LEVEL 31 MEQ/L (21-32); CHLORIDE LEVEL 106 MEQ/L (98-107); CHOLESTEROL LEVEL 165 MG/DL (<200); CHOLESTEROL RISK RATIO 4.342 (<5); CREATININE FOR GFR 0.93 MG/DL (0.55-1.30); FREE T4 1.17 NG/DL (0.76-1.46); GLOMERULAR FILTRATION RATE > 60.0 (>32); GLUCOSE, FASTING 90 MG/DL (70-100); HDL CHOLESTEROL 38 MG/DL (>40); LDL CHOLESTEROL 91 MG/DL (<100); NON-HDL-C 127 MG/DL; POTASSIUM SERUM 4.7 MEQ/L (3.5-5.1); SODIUM LEVEL 139 MEQ/L (136-145); TOTAL PROTEIN 6.9 GM/DL (6.4-8.2); TRIGLYCERIDES LEVEL 182 MG/DL (<150)
[2020-06-17 14:09] LABS: HEMOGLOBIN A1c 5.6 %
== END ==
LOC: M SFHCPLAZ 10:42
PROVIDERS: ATTEND Family Medicine
DX: R73.01 Impaired fasting glucose (principal); E55.9 Vitamin D deficiency, unspecified; E03.9 Hypothyroidism, unspecified; E78.5 Hyperlipidemia, unspecified

== ENCOUNTER → 2020-11-16 | Outpatient (CLI) | payer MEDICARE ==
--- NOTE | 2020-11-16 12:59 | REP ---
INDICATION: PRIMARY OSTEOARTHRITIS, UNSPECIFIED HAND. COMPARISON: None. TECHNIQUE: AP and lateral views FINDINGS: There is moderate intra digital joint space narrowing involving all intra digital joints with the exception of the D IP joint of the 2nd digit where there is severe asymmetric intra digital joint space narrowing. Small marginal osteophytes are seen involving all D IP joints but particularly the 2nd digit and the interphalangeal joint of the 1st digit. There is no acute fracture. There are no thad marginal erosions. There is no periarticular osteopenia. IMPRESSION: Chronic changes as described above. <Electronically signed by Dago Cat > 11/16/20 0833
[2020-11-16 15:39] LABS: APPEARANCE, URINE CLEAR (CLEAR); BACTERIA, URINE AUTO NEGATIVE (NEGATIVE); BILIRUBIN, URINE AUTO NEGATIVE (NEGATIVE); BLOOD, URINE BLOOD NEGATIVE (NEGATIVE); COLOR, URINE YELLOW (YELLOW); GLUCOSE, URINE (UA) AUTO NEGATIVE (NEGATIVE); KETONE, URINE AUTO NEGATIVE (NEGATIVE); LEUKOCYTE ESTERASE, URINE AUTO NEGATIVE (NEGATIVE); NITRITE, URINE AUTO NEGATIVE (NEGATIVE); PROTEIN, URINE AUTO NEGATIVE (NEGATIVE); RBC, URINE AUTO 1 /HPF (0-3); SPECIFIC GRAVITY URINE AUTO 1.013 (1.002-1.035); SQUAMOUS EPITHELIAL CELL UR AU 0 /HPF (0-6); UROBILINOGEN, URINE AUTO 0.2 mg/dL (0.0-2.0); WBC, URINE AUTO 0 /HPF (0-3)
[2020-11-16 15:42] LABS: BASO # 0.1 10^3/uL (0.0-0.2); BASO % 1.4 % (0.0-1.0); EOS # 0.2 10^3/uL (0.0-0.5); EOS % 2.6 % (0.0-3.0); HEMATOCRIT 45.8 % (36.0-47.0); HEMOGLOBIN 15.5 g/dl (12.0-15.5); LYMPH # 1.6 10^3/uL (1.5-5.0); LYMPH % 25.2 % (24.0-44.0); MEAN CORPUSCULAR HEMOGLOBIN 31.1 pg (27.0-33.0); MEAN CORPUSCULAR HGB CONC 33.8 g/dl (32.0-36.5); MEAN CORPUSCULAR VOLUME 91.8 fl (80.0-96.0); MONO # 0.7 10^3/uL (0.0-0.8); MONO % 10.3 % (2.0-8.0); NEUTROPHILS # 3.9 10^3/uL (1.5-8.5); NEUTROPHILS % 60.2 % (36.0-66.0); PLATELET COUNT, AUTOMATED 264 10^3/uL (150-450); RED BLOOD COUNT 4.99 10^6/uL (4.00-5.40); WHITE BLOOD COUNT 6.4 10^3/uL (4.0-10.0)
[2020-11-16 16:28] LABS: HEMOGLOBIN A1c 5.6 %
[2020-11-16 16:36] LABS: ERYTHROCYTE SEDIMENTATION RATE 10 mm/hr (0-30)
[2020-11-16 17:47] LABS: ALBUMIN 3.9 GM/DL (3.2-5.2); ALT/SGPT 30 U/L (12-78); BILIRUBIN,TOTAL 0.5 MG/DL (0.2-1.0); BLOOD UREA NITROGEN 17 MG/DL (7-18); CALCIUM LEVEL 9.1 MG/DL (8.8-10.2); CARBON DIOXIDE LEVEL 30 MEQ/L (21-32); CHLORIDE LEVEL 105 MEQ/L (98-107); CREATININE FOR GFR 0.87 MG/DL (0.55-1.30); FERRITIN 108 NG/ML (8-252); GLOMERULAR FILTRATION RATE > 60.0 (>32); GLUCOSE, FASTING 92 MG/DL (70-100); POTASSIUM SERUM 4.6 MEQ/L (3.5-5.1); RHEUMATOID FACTOR QUANT < 10.0 IU/ML (<15.0); SODIUM LEVEL 139 MEQ/L (136-145); TOTAL PROTEIN 7.1 GM/DL (6.4-8.2)
[2020-11-18 23:08] LABS: ANA (HEP2) Positive (.); CYCLIC CITRULLINATED PEPTIDE 5 units (0-19)
== END ==
LOC: M PLAIMG 12:11
PROVIDERS: ATTEND Family Medicine
DX: M19.042 Primary osteoarthritis, left hand (principal); M25.742 Osteophyte, left hand; R73.01 Impaired fasting glucose; R31.29 Other microscopic hematuria

== ENCOUNTER → 2020-11-24 | Outpatient (CLI) | payer MEDICARE ==
--- NOTE | 2020-11-24 13:46 | REPMRS ---
Patient History No known family history of cancer. Malignant mastectomy of the left breast, 1993. Took tamoxifen for 5 years. Pfizer vaccine 05/17/20 right arm 06/07/20 right arm. Patient states no breast complaints today. Patient has signed MRS History Sheet. Digital Woman Screen Mammo: November 24, 2020 - Exam #: [id number] Bilateral CC and MLO view(s) were taken. Technologist: RT Sharda Prior study comparison: February 05, 2019, bilateral digital woman screen mammo performed at [facility]. October 10, 2017, bilateral digital woman screen mammo performed at [facility]. FINDINGS: There are scattered fibroglandular densities. Screening. Digital screening (2D) mammography was performed on the right breast in the CC and MLO projections. Additionally, breast tomosynthesis (3D mammography) was performed in the CC and MLO projections. Todays exam was compared to the prior exam/exams. By history, the patient has no complaints of a palpable breast abnormality or other significant breast complaints. There are no mariajose-soft tissue densities or spiculated masses. There is no internal architectural distortion. Once again, stable benign appearing calcifications are seen.There are no suspicious mariajose-calcific clusters. Skin thickening or nipple retraction is not present. IMPRESSION: BI-RADS Category 2- Benign Findings. There is no evidence of malignant alteration. Followup examination recommended in one year. The Volpara volumetric breast density category is B, there are scattered areas of fibroglandular densities. This mammogram was read with the assistance of [employer],an FDA approved computer aided detection system for mammography. Negative x-ray reports should not delay surgical consultation if a dominant or clinically suspicious mass is present. Not all breast cancers can be identified by mammography. Therefore, we recommend that you continue to perform regular breast self-examination and physical examination and then promptly contact your physician of any concerns or changes. Adenosis and dense breasts may obscure an underlying neoplasm. Assessment: BI-RADS/ACR category 2 mammogram. Benign Findings. Recommendation Routine screening mammogram of both breasts in 1 year. Electronically Signed By: Dago Cat DO 11/24/20 [id number]
--- NOTE | 2020-11-24 14:36 | DEXAMM ---
INDICATION: M85.80 OSTEOPENIA. COMPARISON: 07/27/2015 as well as other prior exams. TECHNIQUE: Bone density was measured using dual-energy x-ray absorptiometry (DEXA). FINDINGS: AP SPINE L1-L4 BMD 1.578 g/cm2 Young Adult T-Score 3.1 Age Matched Z-Score 4.9. LT FEMUR, TOTAL BMD 0.906 g/cm2 Young Adult T-Score -0.8 Age Matched Z-Score 1.2. LT NECK BMD 0.973 g/cm2 Young Adult T-Score -0.5 Age Matched Z-Score 1.7. RT FEMUR, TOTAL BMD 0.922 g/cm2 Young Adult T-Score -0.7 Age Matched Z-Score 1.4. RT NECK BMD 0.947 g/cm2 Young Adult T-Score -0.7 Age Matched Z-Score 1.5. IMPRESSION: There is normal bone density of the spine. There is normal bone density of the left hip. There is normal bone density of the right hip. The density of the spine has increased 23.7% since the initial exam on 05/24/2000. The density of the spine increased 12.1% since most recent exam on 07/27/2015. The density of the left hip has decreased 5.0% since initial exam on 05/24/2000. The density of the left hip has decreased 3.6% since most recent exam on 07/27/2015. The density of the right hip has decreased 9.2% since the initial exam on 05/24/2000. The density of the right hip has decreased 1.9% since the most recent exam on 07/27/2015. FOLLOW-UP: Recommendation for the next bone density exam: 5 years. <Electronically signed by Fan Lloyd > 11/24/20 [id number]
== END ==
LOC: M WHC 12:48
PROVIDERS: ATTEND Family Medicine
DX: Z12.31 Encounter for screening mammogram for malignant neoplasm of breast (principal); M85.88 Other specified disorders of bone density and structure, other site; Z95.3 Presence of xenogenic heart valve

== ENCOUNTER → 2021-01-03 | Outpatient (CLI) | payer MEDICARE ==
[2021-01-03 15:53] LABS: ALBUMIN 3.6 GM/DL (3.2-5.2); BLOOD UREA NITROGEN 13 MG/DL (7-18); CALCIUM LEVEL 8.9 MG/DL (8.8-10.2); CARBON DIOXIDE LEVEL 27 MEQ/L (21-32); CHLORIDE LEVEL 105 MEQ/L (98-107); CREATININE FOR GFR 0.95 MG/DL (0.55-1.30); GLOMERULAR FILTRATION RATE > 60.0 (>32); GLUCOSE, FASTING 89 MG/DL (70-100); PHOSPHORUS LEVEL 3.4 MG/DL (2.5-4.9); POTASSIUM SERUM 4.2 MEQ/L (3.5-5.1); SODIUM LEVEL 140 MEQ/L (136-145)
== END ==
LOC: M PLALAB 09:53
PROVIDERS: ATTEND Family Medicine
DX: R73.01 Impaired fasting glucose (principal)

== ENCOUNTER → 2021-01-05 | Outpatient (CLI) | payer MEDICARE ==
[~2021-01-05] MED LIST changes: +PROHANCE 279.3MG/ML 15ML VIAL ONE
--- NOTE | 2021-01-05 15:01 | REP ---
INDICATION: LT HAND MASS OF FINGER. COMPARISON: Radiographs 11/16/2020. TECHNIQUE: Multiple sequences in the axial, coronal and sagittal planes prior to and following the intravenous administration of 15 cc ProHance. Images are centered on the 2nd digit where there is reportedly a palpable lump in the region of the proximal phalanx. FINDINGS: At the site of the palpable lump there is an oval nodule which follows fat signal consistent with a lipoma. There is no suspicious internal enhancement. This measures approximately 1.6 x 1.1 x 1.4 cm. It is located in a subcutaneous location along the anterolateral aspect of the 2nd proximal phalanx and associated flexor tendon. There is marrow edema in the middle and distal phalanges of the 2nd digit which may be due to arthritic change at the intervening distal interphalangeal joint. No other abnormal bone marrow signal is seen. No other soft tissue abnormality is seen. The visualized flexor and extensor tendons appear intact with no significant tenosynovitis. IMPRESSION: At the site of the palpable lump along the 2nd proximal phalanx there is a nodule representing a lipoma measuring 1.6 x 1.1 x 1.4 cm as discussed above. There is marrow edema in the 2nd middle and distal phalanges likely related to arthritic change at the intervening D IP joint. <Electronically signed by Fan Lloyd > 01/05/21 [id number]
== END ==
LOC: M PLAIMG 13:08
PROVIDERS: ATTEND Family Medicine
DX: R22.32 Localized swelling, mass and lump, left upper limb (principal)
CPT/HCPCS: 73220; A9576

== ENCOUNTER → 2021-07-21 | Outpatient (CLI) | payer MEDICARE ==
[~2021-07-21] MED LIST changes: -PROHANCE 279.3MG/ML 15ML VIAL ONE
== END ==
LOC: M RAD 11:34
PROVIDERS: ATTEND Family Medicine
DX: I65.23 Occlusion and stenosis of bilateral carotid arteries (principal)

== ENCOUNTER 2021-11-26 12:31 | Inpatient (IN) | payer MEDICARE ==
[~2021-11-26] VITALS: Ht 162.6 cm; Wt 49.5 kg
[2021-11-26] MEDS ORDERED: DIGOXIN INJ 0.5 MG/2 ML AMP (J1160) IV STA (13:19)
[2021-11-26 13:45] LABS: BASO # 0.1 10^3/uL (0.0-0.2); BASO % 1.3 % (0.0-1.0); EOS # 0.2 10^3/uL (0.0-0.5); EOS % 2.7 % (0.0-3.0); HEMATOCRIT 40.6 % (36.0-47.0); HEMOGLOBIN 13.5 g/dl (12.0-15.5); LYMPH # 1.5 10^3/uL (1.5-5.0); MEAN CORPUSCULAR HEMOGLOBIN 30.1 pg (27.0-33.0); MEAN CORPUSCULAR HGB CONC 33.3 g/dl (32.0-36.5); MEAN CORPUSCULAR VOLUME 90.6 fl (80.0-96.0); MONO # 0.6 10^3/uL (0.0-0.8); NEUTROPHILS # 4.6 10^3/uL (1.5-8.5); NEUTROPHILS % 64.9 % (36.0-66.0); PLATELET COUNT, AUTOMATED 246 10^3/uL (150-450); RED BLOOD COUNT 4.48 10^6/uL (4.00-5.40)
[2021-11-26 14:15] LABS: RSV AMPLIFICATION NEGATIVE (NEGATIVE)
[2021-11-26 14:25] LABS: CK-MB VALUE MASS 1.8 NG/ML (<3.6); MB/CK RELATIVE INDEX 1.91 (< OR =4)
[2021-11-26 14:29] LABS: ALBUMIN 3.3 GM/DL (3.2-5.2); BILIRUBIN,DIRECT 0.2 MG/DL (0.0-0.2); BILIRUBIN,TOTAL 0.6 MG/DL (0.2-1.0); CALCIUM LEVEL 8.7 MG/DL (8.8-10.2); CREATININE FOR GFR 0.96 MG/DL (0.55-1.30); GLOMERULAR FILTRATION RATE 59.4 (>32); MAGNESIUM LEVEL 2.1 MG/DL (1.8-2.4); POTASSIUM SERUM 4.4 MEQ/L (3.5-5.1); THYROID STIMULATING HORMONE 2.47 uIU/ML (0.358-3.740); THYROXINE (T4) 14.7 UG/DL (4.5-12.0); TOTAL PROTEIN 6.3 GM/DL (6.4-8.2)
[2021-11-26] MEDS ORDERED: ISOVUE-370 76% 100ML VIAL As Ordered ONE (14:52)
[2021-11-26] MEDS ORDERED: METOPROLOL TART 25 MG TABLET PO ONE (15:10)
[2021-11-26 15:52] LABS: CK-MB VALUE MASS 1.5 NG/ML (<3.6); MB/CK RELATIVE INDEX 1.79 (< OR =4)
[2021-11-26] MEDS ORDERED: APIXABAN 5 MG TAB (ELIQUIS) PO ONE (16:30)
[2021-11-26] MEDS ORDERED: VITA100093 PO (17:01)
[2021-11-26] MEDS ORDERED: CITA20TA7 PO (17:01)
[2021-11-26] MEDS ORDERED: ACET-897 PO (17:01)
[2021-11-26] MEDS ORDERED: HOME MED LIST COMPLETE! XX SCH (17:05)
[2021-11-26] MEDS ORDERED: MOM 30ML SUSPENSION UDC PO PRN (17:05)
[2021-11-26] MEDS ORDERED: MAALOX 30 ML SUSP *UDC PO PRN (17:05)
[2021-11-26] MEDS ORDERED: ACETAMINOPHEN TAB 650MG DOSE (2X325MG) PO PRN (17:05)
[2021-11-26 18:46] LABS: BASO # 0.1 10^3/uL (0.0-0.2); BASO % 1.7 % (0.0-1.0); EOS # 0.3 10^3/uL (0.0-0.5); EOS % 5.2 % (0.0-3.0); HEMATOCRIT 43.1 % (36.0-47.0); HEMOGLOBIN 13.9 g/dl (12.0-15.5); LYMPH # 1.9 10^3/uL (1.5-5.0); LYMPH % 28.3 % (24.0-44.0); MEAN CORPUSCULAR HEMOGLOBIN 29.3 pg (27.0-33.0); MEAN CORPUSCULAR HGB CONC 32.3 g/dl (32.0-36.5); MEAN CORPUSCULAR VOLUME 90.9 fl (80.0-96.0); MONO # 0.8 10^3/uL (0.0-0.8); NEUTROPHILS # 3.5 10^3/uL (1.5-8.5); NEUTROPHILS % 52.5 % (36.0-66.0); PLATELET COUNT, AUTOMATED 254 10^3/uL (150-450); RED BLOOD COUNT 4.74 10^6/uL (4.00-5.40); WHITE BLOOD COUNT 6.6 10^3/uL (4.0-10.0)
[2021-11-26 19:29] LABS: ALBUMIN 3.3 GM/DL (3.2-5.2); BILIRUBIN,TOTAL 0.4 MG/DL (0.2-1.0); CALCIUM LEVEL 8.8 MG/DL (8.8-10.2); CREATININE FOR GFR 0.97 MG/DL (0.55-1.30); GLOMERULAR FILTRATION RATE 58.7 (>32); MAGNESIUM LEVEL 2.3 MG/DL (1.8-2.4); POTASSIUM SERUM 4.7 MEQ/L (3.5-5.1); TOTAL PROTEIN 6.4 GM/DL (6.4-8.2)
[2021-11-26] MEDS: ROSUVASTATIN 10 MG TAB (CRESTOR) PO SCH (21:41)
[2021-11-26] MEDS: CitaloPRAM (CeleXA) 10 MG TABLET PO SCH (21:41)
[2021-11-26 23:57] VITALS: BP 129/88
[2021-11-27] MEDS ORDERED: ALPRAZolam 0.25 MG TAB PO ONE (02:30)
[2021-11-27 04:06] VITALS: BP 109/57
[2021-11-27] MEDS: LEVOTHYROXINE 100MCG TABLET (0.1MG) PO SCH (06:14)
[2021-11-27 07:42] VITALS: BP 130/60
[2021-11-27] MEDS: APIXABAN 5 MG TAB (ELIQUIS) PO SCH ×2 (08:23→20:30)
[2021-11-27] MEDS ORDERED: METOPROLOL TART 25 MG TABLET PO SCH (09:00)
[2021-11-27 12:38] VITALS: BP 116/58
[2021-11-27 16:58] VITALS: BP 110/53
[2021-11-27 20:00] VITALS: BP 126/80
[2021-11-27] MEDS: CitaloPRAM (CeleXA) 10 MG TABLET PO SCH (20:31)
[2021-11-27] MEDS: ROSUVASTATIN 10 MG TAB (CRESTOR) PO SCH (20:32)
[2021-11-27] MEDS ORDERED: METOPROLOL TART 12.5 MG PER 1/2 TAB PO SCH (21:00)
[2021-11-28] VITALS: BP 123/62
[2021-11-28 04:00] VITALS: BP 120/70
[2021-11-28] MEDS: LEVOTHYROXINE 100MCG TABLET (0.1MG) PO SCH (06:22)
[2021-11-28 08:00] LABS: BASO # 0.1 10^3/uL (0.0-0.2); BASO % 1.1 % (0.0-1.0); EOS # 0.3 10^3/uL (0.0-0.5); EOS % 5.1 % (0.0-3.0); HEMOGLOBIN 12.7 g/dl (12.0-15.5); LYMPH # 1.3 10^3/uL (1.5-5.0); LYMPH % 19.5 % (24.0-44.0); MEAN CORPUSCULAR HEMOGLOBIN 30.2 pg (27.0-33.0); MEAN CORPUSCULAR HGB CONC 32.6 g/dl (32.0-36.5); MEAN CORPUSCULAR VOLUME 92.6 fl (80.0-96.0); MONO # 0.7 10^3/uL (0.0-0.8); NEUTROPHILS # 4.2 10^3/uL (1.5-8.5); PLATELET COUNT, AUTOMATED 211 10^3/uL (150-450); RED BLOOD COUNT 4.21 10^6/uL (4.00-5.40); WHITE BLOOD COUNT 6.6 10^3/uL (4.0-10.0)
[2021-11-28 08:23] VITALS: BP 121/58
[2021-11-28 08:27] LABS: BLOOD UREA NITROGEN 17 MG/DL (7-18); CALCIUM LEVEL 8.5 MG/DL (8.8-10.2); CARBON DIOXIDE LEVEL 27 MEQ/L (21-32); CHLORIDE LEVEL 109 MEQ/L (98-107); CREATININE FOR GFR 0.95 MG/DL (0.55-1.30); GLOMERULAR FILTRATION RATE > 60.0 (>32); GLUCOSE, FASTING 95 MG/DL (70-100); MAGNESIUM LEVEL 2.2 MG/DL (1.8-2.4); POTASSIUM SERUM 4.4 MEQ/L (3.5-5.1); SODIUM LEVEL 141 MEQ/L (136-145)
[2021-11-28 08:46] VITALS: BP 121/58
[2021-11-28] MEDS ORDERED: METOPROLOL SUCC *XL* 12.5MG PER 1/2 TAB (TopROL *XL*) PO SCH (09:00)
[2021-11-28] MEDS: APIXABAN 5 MG TAB (ELIQUIS) PO SCH (09:04)
[2021-11-28] MEDS ORDERED: FUROSEMIDE 40MG/4ML VIAL (J1940) IV ONE (10:20)
[2021-11-28] MEDS ORDERED: ELIQ5TAB PO (10:23)
[2021-11-28] MEDS ORDERED: FURO20TA2 PO (10:23)
[2021-11-28] MEDS ORDERED: K-TA10TA2 PO (10:24)
[2021-11-28 13:08] VITALS: BP 103/53
== END 2021-11-28 15:04 | disposition home or self-care (01) | DRG 309 ==
LOC: M ED 12:31 → M ED INP 17:02 → M PCU 23:48
PROVIDERS: ADMIT Family Medicine; ATTEND Family Medicine
DX: I48.91 Unspecified atrial fibrillation (principal); I50.30 Unspecified diastolic (congestive) heart failure; Z96.653 Presence of artificial knee joint, bilateral; E78.5 Hyperlipidemia, unspecified; E03.9 Hypothyroidism, unspecified; F41.1 Generalized anxiety disorder; E78.00 Pure hypercholesterolemia, unspecified; Z79.899 Other long term (current) drug therapy; Z85.3 Personal history of malignant neoplasm of breast; Z87.891 Personal history of nicotine dependence

== ENCOUNTER 2021-12-13 05:41 | Inpatient (IN) | payer MEDICARE ==
[~2021-12-13] VITALS: Ht 160 cm; Wt 75.0 kg
[~2021-12-13 05:41] MED LIST changes: +ACET-897 PO; +CITA20TA7 PO; +ELIQ5TAB PO; +FURO20TA2 PO; +K-TA10TA2 PO; +VITA100093 PO
[2021-12-13 06:17] LABS: VENOUS BASE EXCESS 1.1 (-2.0-2.0); VENOUS HCO3 24.9 MEQ/L (23.0-27.0); VENOUS O2 SATURATION 94.7 % (60.0-80.0); VENOUS PARTIAL PRESSURE CO2 37.2 mmHg (38.0-50.0); VENOUS PARTIAL PRESSURE O2 69.5 mmHg (30.0-50.0); VENOUS PH 7.444 UNITS (7.330-7.430); VENOUS STANDARD HCO3 25.4 MEQ/L; VENOUS TOTAL CO2 26.1 MEQ/L (24.0-28.0)
[2021-12-13 06:22] LABS: BASO # 0.1 10^3/uL (0.0-0.2); BASO % 0.8 % (0.0-1.0); EOS # 0.1 10^3/uL (0.0-0.5); EOS % 1.4 % (0.0-3.0); HEMATOCRIT 42.1 % (36.0-47.0); HEMOGLOBIN 13.8 g/dl (12.0-15.5); MEAN CORPUSCULAR HEMOGLOBIN 29.6 pg (27.0-33.0); MEAN CORPUSCULAR HGB CONC 32.8 g/dl (32.0-36.5); MEAN CORPUSCULAR VOLUME 90.3 fl (80.0-96.0); MONO # 0.8 10^3/uL (0.0-0.8); MONO % 8.1 % (2.0-8.0); NEUTROPHILS # 8.1 10^3/uL (1.5-8.5); NEUTROPHILS % 79.3 % (36.0-66.0); PLATELET COUNT, AUTOMATED 225 10^3/uL (150-450); RED BLOOD COUNT 4.66 10^6/uL (4.00-5.40); WHITE BLOOD COUNT 10.3 10^3/uL (4.0-10.0)
[2021-12-13 06:57] LABS: CK-MB VALUE MASS < 1.0 NG/ML (<3.6); CPK CREATINE PHOSPHOKINASE 65 U/L (26-192); MB/CK RELATIVE INDEX 1.54 (< OR =4)
[2021-12-13 07:08] LABS: ALBUMIN 3.5 GM/DL (3.2-5.2); ALT/SGPT 48 U/L (12-78); BILIRUBIN,DIRECT 0.2 MG/DL (0.0-0.2); BILIRUBIN,TOTAL 0.5 MG/DL (0.2-1.0); BLOOD UREA NITROGEN 13 MG/DL (7-18); CALCIUM LEVEL 8.4 MG/DL (8.8-10.2); CARBON DIOXIDE LEVEL 26 MEQ/L (21-32); CHLORIDE LEVEL 108 MEQ/L (98-107); CREATININE FOR GFR 0.89 MG/DL (0.55-1.30); DIGOXIN LEVEL 0.1 NG/ML (0.5-2.0); GLOMERULAR FILTRATION RATE > 60.0 (>32); GLUCOSE, FASTING 121 MG/DL (70-100); NT-PRO BNP 1193 PG/ML (<450); POTASSIUM SERUM 4.3 MEQ/L (3.5-5.1); SODIUM LEVEL 138 MEQ/L (136-145); TOTAL PROTEIN 6.8 GM/DL (6.4-8.2)
[2021-12-13] MEDS ORDERED: METO50TA7 PO (07:53)
[2021-12-13] MEDS ORDERED: D-ME118L PO (07:53)
[2021-12-13 08:18] LABS: CK-MB VALUE MASS < 1.0 NG/ML (<3.6); CPK CREATINE PHOSPHOKINASE 83 U/L (26-192)
[2021-12-13] MEDS ORDERED: dexameTHASONE 4 MG/ML 1ML VIAL (J1100 PER 1MG) IV ONE (08:25)
[2021-12-13] MEDS ORDERED: ACETAMINOPHEN TAB 650MG DOSE (2X325MG) PO ONE (08:25)
[2021-12-13] MEDS ORDERED: COMBIVENT RESPIMAT 100-20MCG INHALER 4GM INH ONE (08:25)
[2021-12-13] MEDS: APIXABAN 5 MG TAB (ELIQUIS) PO SCH ×2 (09:18→21:35)
[2021-12-13] MEDS ORDERED: POTA1TAB23 PO (09:19)
[2021-12-13] MEDS ORDERED: FURO20TA2 PO (09:19)
[2021-12-13] MEDS ORDERED: ELIQ5TAB PO (09:19)
[2021-12-13] MEDS: METOPROLOL TART 25 MG TABLET PO SCH ×2 (09:24→21:00)
[2021-12-13] MEDS ORDERED: HOME MED LIST COMPLETE! XX SCH (09:25)
[2021-12-13] MEDS ORDERED: NS 500 ML IV ONE (09:55)
[2021-12-13 10:22] LABS: INR 1.35; PROTHROMBIN TIME 17.1 SECONDS (12.7-14.5)
[2021-12-13 10:23] LABS: PARTIAL THROMBOPLASTIN TIME 32.7 SECONDS (25.9-37.0)
[2021-12-13 10:25] LABS: D-DIMER QUANT 1148.89 ng/ml (<500)
[2021-12-13 10:42] LABS: C REACTIVE PROTEIN QUANTITATIV 1.61 MG/DL (0.00-0.30)
[2021-12-13] MEDS ORDERED: REMDESIVIR 200 MG in NS 250 ML IV ONE (12:00)
[2021-12-13 12:30] VITALS: BP 98/53
[2021-12-13 12:33] VITALS: O2SAT 96
[2021-12-13] MEDS ORDERED: ACETAMINOPHEN 500 MG TAB PO PRN (12:55)
[2021-12-13] MEDS ORDERED: SODIUM CHLORIDE 0.9% INJ 10 ML SYR IV ONE (14:00)
[2021-12-13 16:00] VITALS: BP 92/66; O2SAT 93
[2021-12-13 20:00] VITALS: BP 94/68; O2SAT 93
[2021-12-13] MEDS: CitaloPRAM (CeleXA) 20 MG TAB PO SCH (21:35)
[2021-12-13] MEDS: ROSUVASTATIN 10 MG TAB (CRESTOR) PO SCH (21:35)
[2021-12-13] MEDS ORDERED: BENZONATATE 100MG CAPSULE PO ONE (22:00)
[2021-12-14] VITALS (10 sets, daily range): BP systolic 82–134; BP diastolic 53–69; O2SAT 93
[2021-12-14] MEDS ORDERED: NS 500 ML IV ONE (01:30)
[2021-12-14 05:47] LABS: BASO % 0.1 % (0.0-1.0); HEMATOCRIT 37.4 % (36.0-47.0); HEMOGLOBIN 12.3 g/dl (12.0-15.5); LYMPH % 11.4 % (24.0-44.0); MEAN CORPUSCULAR HGB CONC 32.9 g/dl (32.0-36.5); MEAN CORPUSCULAR VOLUME 91.2 fl (80.0-96.0); MONO # 0.7 10^3/uL (0.0-0.8); MONO % 8.2 % (2.0-8.0); NEUTROPHILS # 7.2 10^3/uL (1.5-8.5); NEUTROPHILS % 79.6 % (36.0-66.0); PLATELET COUNT, AUTOMATED 206 10^3/uL (150-450)
[2021-12-14 06:12] LABS: ALT/SGPT 36 U/L (12-78); BILIRUBIN,TOTAL 0.3 MG/DL (0.2-1.0); BLOOD UREA NITROGEN 16 MG/DL (7-18); CALCIUM LEVEL 8.3 MG/DL (8.8-10.2); CARBON DIOXIDE LEVEL 24 MEQ/L (21-32); CHLORIDE LEVEL 112 MEQ/L (98-107); CREATININE FOR GFR 0.77 MG/DL (0.55-1.30); GLOMERULAR FILTRATION RATE > 60.0 (>32); GLUCOSE, FASTING 119 MG/DL (70-100); MAGNESIUM LEVEL 2.2 MG/DL (1.8-2.4); SODIUM LEVEL 141 MEQ/L (136-145); TOTAL PROTEIN 5.8 GM/DL (6.4-8.2)
[2021-12-14] MEDS ORDERED: NS 1,000 ML IV SCH (07:10)
[2021-12-14] MEDS: APIXABAN 5 MG TAB (ELIQUIS) PO SCH ×2 (08:59→21:44)
[2021-12-14] MEDS: LEVOTHYROXINE 100MCG TABLET (0.1MG) PO SCH (08:59)
[2021-12-14] MEDS ORDERED: POTASSIUM CHLORIDE 10MEQ SR TABLET PO SCH (09:00)
[2021-12-14] MEDS ORDERED: METOPROLOL TART 12.5 MG PER 1/2 TAB PO SCH (09:00)
[2021-12-14] MEDS ORDERED: REMDESIVIR 100 MG in NS 250 ML IV SCH (12:00)
[2021-12-14] MEDS ORDERED: SODIUM CHLORIDE 0.9% INJ 10 ML SYR IV SCH (13:00)
[2021-12-14] MEDS: AMIODARONE 200 MG TAB (PACERONE) PO SCH ×2 (15:17→21:45)
[2021-12-14] MEDS ORDERED: METOPROLOL SUCC *XL* 25MG TAB (TopROL *XL*) PO SCH (21:00)
[2021-12-14] MEDS ORDERED: VITAMIN D 1,000 INTERNATIONAL UNITS TABLET PO SCH (21:00)
[2021-12-14] MEDS ORDERED: RAMELTEON 8 MG TAB (ROZEREM) PO SCH (21:00)
[2021-12-14] MEDS: ROSUVASTATIN 10 MG TAB (CRESTOR) PO SCH (21:45)
[2021-12-14] MEDS: CitaloPRAM (CeleXA) 20 MG TAB PO SCH (21:45)
[2021-12-15] VITALS: BP 108/69
[2021-12-15 04:00] VITALS: BP 111/76
[2021-12-15 06:51] LABS: BASO # 0.1 10^3/uL (0.0-0.2); BASO % 0.9 % (0.0-1.0); EOS # 0.3 10^3/uL (0.0-0.5); EOS % 2.8 % (0.0-3.0); HEMATOCRIT 36.5 % (36.0-47.0); LYMPH # 2.1 10^3/uL (1.5-5.0); LYMPH % 23.6 % (24.0-44.0); MEAN CORPUSCULAR HEMOGLOBIN 29.9 pg (27.0-33.0); MEAN CORPUSCULAR HGB CONC 32.9 g/dl (32.0-36.5); MEAN CORPUSCULAR VOLUME 90.8 fl (80.0-96.0); MONO # 0.7 10^3/uL (0.0-0.8); NEUTROPHILS # 5.8 10^3/uL (1.5-8.5); NEUTROPHILS % 64.5 % (36.0-66.0); PLATELET COUNT, AUTOMATED 221 10^3/uL (150-450); RED BLOOD COUNT 4.02 10^6/uL (4.00-5.40)
[2021-12-15] MEDS ORDERED: METO1TAB32 PO (07:21)
[2021-12-15] MEDS ORDERED: AMIO200T49 PO (07:21)
[2021-12-15 07:22] LABS: ALBUMIN 2.8 GM/DL (3.2-5.2); ALT/SGPT 50 U/L (12-78); BILIRUBIN,TOTAL 0.3 MG/DL (0.2-1.0); BLOOD UREA NITROGEN 19 MG/DL (7-18); CALCIUM LEVEL 8.1 MG/DL (8.8-10.2); CARBON DIOXIDE LEVEL 24 MEQ/L (21-32); CHLORIDE LEVEL 113 MEQ/L (98-107); CREATININE FOR GFR 0.85 MG/DL (0.55-1.30); GLOMERULAR FILTRATION RATE > 60.0 (>32); GLUCOSE, FASTING 86 MG/DL (70-100); MAGNESIUM LEVEL 2.1 MG/DL (1.8-2.4); POTASSIUM SERUM 4.1 MEQ/L (3.5-5.1); SODIUM LEVEL 142 MEQ/L (136-145); TOTAL PROTEIN 5.5 GM/DL (6.4-8.2)
[2021-12-15 08:00] VITALS: BP 107/80
[2021-12-15] MEDS: APIXABAN 5 MG TAB (ELIQUIS) PO SCH (08:31)
[2021-12-15] MEDS: LEVOTHYROXINE 100MCG TABLET (0.1MG) PO SCH (08:31)
[2021-12-15] MEDS: AMIODARONE 200 MG TAB (PACERONE) PO SCH (08:31)
== END 2021-12-15 12:35 | disposition home or self-care (01) | DRG 308 ==
LOC: EDBD 05:41 → M ED 05:41 → M ED INP 08:37 → ENRESERV 11:39 → M PCU 12:22
PROVIDERS: ADMIT Internal Medicine; ATTEND Internal Medicine
PROC: XW033E5 Introduction of Remdesivir Anti-infective into Peripheral Vein, Percutaneous Approach, New Technology Group 5 (ICD-10-PCS; principal; 2021-12-13)
PROC: 3E0333Z Introduction of Anti-inflammatory into Peripheral Vein, Percutaneous Approach (ICD-10-PCS; 2021-12-13)
DX: I48.91 Unspecified atrial fibrillation (principal); U07.1 COVID-19; I50.32 Chronic diastolic (congestive) heart failure; E78.5 Hyperlipidemia, unspecified; E03.9 Hypothyroidism, unspecified; F41.1 Generalized anxiety disorder; F32.A Depression, unspecified; Z85.3 Personal history of malignant neoplasm of breast; M17.0 Bilateral primary osteoarthritis of knee; Z96.659 Presence of unspecified artificial knee joint; Z90.49 Acquired absence of other specified parts of digestive tract; Z87.891 Personal history of nicotine dependence; I95.9 Hypotension, unspecified; Z79.01 Long term (current) use of anticoagulants; Z79.899 Other long term (current) drug therapy

== ENCOUNTER → 2022-06-27 | Outpatient (CLI) | payer MEDICARE ==
[~2022-06-27] MED LIST changes: +AMIO200T49 PO; +D-ME118L PO; +METO1TAB32 PO; +METO50TA7 PO; +POTA1TAB23 PO
== END ==
LOC: M WHC 09:59
PROVIDERS: ATTEND Family Medicine
DX: Z12.31 Encounter for screening mammogram for malignant neoplasm of breast (principal); Z85.3 Personal history of malignant neoplasm of breast; Z90.12 Acquired absence of left breast and nipple

== ENCOUNTER → 2022-07-28 | Outpatient (CLI) | payer MEDICARE ==
[2022-07-28 15:46] LABS: C REACTIVE PROTEIN QUANTITATIV < 0.40 MG/DL (<1.0)
[2022-07-28 15:48] LABS: ALBUMIN 3.7 G/DL (3.2-5.2); ALKALINE PHOSPHATASE 72 U/L (46-116); ALT/SGPT 26 U/L (7.0-40); AST/SGOT 27 U/L (<34); BILIRUBIN,TOTAL 0.6 MG/DL (0.3-1.2); BLOOD UREA NITROGEN 16 MG/DL (9-23); CALCIUM LEVEL 8.3 MG/DL (8.3-10.6); CARBON DIOXIDE LEVEL 29 MMOL/L (20-31); CHLORIDE LEVEL 105 MMOL/L (98-107); CHOLESTEROL LEVEL 137 MG/DL (<200); CHOLESTEROL RISK RATIO 2.79 (<5); CREATININE FOR GFR 1.07 MG/DL (0.55-1.30); GLOMERULAR FILTRATION RATE 52.3 (>32); GLUCOSE, FASTING 88 MG/DL (74-106); HDL CHOLESTEROL 49.1 MG/DL (>40); LDL CHOLESTEROL 65.1 MG/DL (<100); MAGNESIUM LEVEL 2.2 MG/DL (1.8-2.4); NON-HDL-C 87.9 MG/DL; POTASSIUM SERUM 4.7 MMOL/L (3.5-5.1); PTH INTACT 83.1 PG/ML (18.5-88.0); SODIUM LEVEL 139 MMOL/L (136-145); TOTAL 25(OH) VITAMIN D 56.9 NG/ML (20.0-100.0); TOTAL PROTEIN 6.6 G/DL (5.7-8.2); TRIGLYCERIDES LEVEL 114 MG/DL (<150)
[2022-07-28 15:49] LABS: THYROID STIMULATING HORMONE 4.107 uIU/ML (0.55-4.78)
== END ==
LOC: M PLALAB 12:12
PROVIDERS: ATTEND Family Medicine
DX: I50.32 Chronic diastolic (congestive) heart failure (principal); E03.9 Hypothyroidism, unspecified; E78.5 Hyperlipidemia, unspecified; E55.9 Vitamin D deficiency, unspecified; Z79.899 Other long term (current) drug therapy

== ENCOUNTER → 2022-07-28 | Outpatient (CLI) | payer MEDICARE ==
[2022-07-28 15:33] LABS: HEMATOCRIT 43.1 % (36.0-47.0); MEAN CORPUSCULAR HEMOGLOBIN 30.4 pg (27.0-33.0); MEAN CORPUSCULAR HGB CONC 32.5 g/dl (32.0-36.5); MEAN CORPUSCULAR VOLUME 93.5 fl (80.0-96.0); PLATELET COUNT, AUTOMATED 270 10^3/uL (150-450); RED BLOOD COUNT 4.61 10^6/uL (4.00-5.40); WHITE BLOOD COUNT 7.9 10^3/uL (4.0-10.0)
[2022-07-28 15:58] LABS: CALCIUM LEVEL 8.7 MG/DL (8.3-10.6); CREATININE FOR GFR 1.08 MG/DL (0.55-1.30); GLOMERULAR FILTRATION RATE 51.7 (>32); POTASSIUM SERUM 4.8 MMOL/L (3.5-5.1)
== END ==
LOC: M PLALAB 12:11
PROVIDERS: ATTEND Nurse Practitioner Family
DX: I48.19 Other persistent atrial fibrillation (principal); Z79.899 Other long term (current) drug therapy

== ENCOUNTER → 2023-01-01 | Outpatient (REF) | payer MEDICARE ==
[~2023-01-01] MED LIST changes: -K-TA10TA2 PO; +POTA-165 PO
== END ==
LOC: M SFHCPLAZ 13:05
PROVIDERS: ATTEND Family Medicine
DX: I50.32 Chronic diastolic (congestive) heart failure (principal); R73.01 Impaired fasting glucose; E78.5 Hyperlipidemia, unspecified

== ENCOUNTER → 2023-06-05 | Outpatient (CLI) | payer MEDICARE | LOC: M WHC 12:11 | PROVIDERS: ATTEND Family Medicine | DX: Z12.31 Encounter for screening mammogram for malignant neoplasm of breast (principal) ==

== ENCOUNTER 2023-07-19 11:06 | Inpatient (IN) | payer MEDICARE ==
[~2023-07-19] VITALS: Ht 160 cm; Wt 75.8 kg
[2023-07-19 11:43] LABS: BASO % 0.4 % (0.0-1.0); EOS % 0.1 % (0.0-3.0); HEMATOCRIT 43.7 % (36.0-47.0); HEMOGLOBIN 14.2 g/dl (12.0-15.5); LYMPH # 0.8 10^3/uL (1.5-5.0); LYMPH % 7.5 % (24.0-44.0); MEAN CORPUSCULAR HEMOGLOBIN 27.1 pg (27.0-33.0); MEAN CORPUSCULAR HGB CONC 32.5 g/dl (32.0-36.5); MEAN CORPUSCULAR VOLUME 83.4 fl (80.0-96.0); MONO # 0.5 10^3/uL (0.0-0.8); MONO % 4.4 % (2.0-8.0); NEUTROPHILS # 8.9 10^3/uL (1.5-8.5); NEUTROPHILS % 87.3 % (36.0-66.0); PLATELET COUNT, AUTOMATED 372 10^3/uL (150-450); RED BLOOD COUNT 5.24 10^6/uL (4.00-5.40); WHITE BLOOD COUNT 10.1 10^3/uL (4.0-10.0)
[2023-07-19 11:53] LABS: INR 1.61; PARTIAL THROMBOPLASTIN TIME 31.7 SECONDS (24.8-34.2); PROTHROMBIN TIME 18.6 SECONDS (12.5-14.5)
[2023-07-19 12:07] LABS: CK-MB VALUE MASS 3.7 NG/ML (<3.6); MB/CK RELATIVE INDEX 4.68 (< OR =4)
[2023-07-19 12:08] LABS: ALBUMIN 3.2 G/DL (3.2-5.2); BILIRUBIN,DIRECT 0.3 MG/DL (<0.4); BILIRUBIN,TOTAL 0.8 MG/DL (0.3-1.2); CREATININE FOR GFR 1.36 MG/DL (0.55-1.30); GLOMERULAR FILTRATION RATE 39.5 (>32); POTASSIUM SERUM 4.4 MMOL/L (3.5-5.1); TOTAL PROTEIN 6.6 G/DL (5.7-8.2)
[2023-07-19] MEDS ORDERED: ISOVUE-370 76% 100ML VIAL As Ordered ONE (12:14)
[2023-07-19] MEDS: NS 1,000 ML IV ONE ×2 (12:34)
[2023-07-19 12:48] LABS: C REACTIVE PROTEIN QUANTITATIV 5.2 MG/DL (<1.0); MAGNESIUM LEVEL 2.1 MG/DL (1.8-2.4)
[2023-07-19] MEDS: NS 500 ML IV ONE (13:21)
[2023-07-19] MEDS: cefTRIAXone SOD 1 GM in D5W MINI-BAG PLUS 50 ML IV ONE (14:05)
[2023-07-19] MEDS ORDERED: VITA200012 PO (14:13)
[2023-07-19] MEDS ORDERED: FLUT15.819 (14:16)
[2023-07-19] MEDS ORDERED: HOME MED LIST COMPLETE! XX SCH (14:20)
[2023-07-19] MEDS: metroNIDAZOLE 500 MG in IV 1 EA IV ONE (14:48)
[2023-07-19] MEDS ORDERED: SODIUM CHLORIDE 0.9% 1000ML IV ONE (16:30)
[2023-07-19 16:49] VITALS: BP 115/54; TEMP 97.5; O2SAT 95
[2023-07-19] MEDS ORDERED: ONDANSETRON 4MG 2ML VIAL IV PRN (16:55)
[2023-07-19 17:11] LABS: PROCALCITONIN 0.35 ng/ml
[2023-07-19] MEDS: NS 1,000 ML IV SCH (17:33)
[2023-07-19 19:01] VITALS: BP 105/55; TEMP 98.7; O2SAT 94
[2023-07-19] MEDS ORDERED: APIXABAN 5 MG TAB (ELIQUIS) PO SCH (21:00)
[2023-07-19] MEDS: HEPARIN SOD (PORCINE) 5000UNITS/ML 1ML VIAL/SYRINGE SQ SCH (21:02)
[2023-07-19] MEDS: ROSUVASTATIN 10 MG TAB (CRESTOR) PO SCH (21:03)
[2023-07-19] MEDS: CitaloPRAM (CeleXA) 10 MG TABLET PO SCH (21:03)
[2023-07-19 23:21] VITALS: BP 103/55; TEMP 98.5; O2SAT 96
[2023-07-20 03:21] VITALS: BP 118/57; TEMP 98.2; O2SAT 92
[2023-07-20 05:59] LABS: HEMATOCRIT 33.4 % (36.0-47.0); MEAN CORPUSCULAR HEMOGLOBIN 27.2 pg (27.0-33.0); MEAN CORPUSCULAR HGB CONC 32.9 g/dl (32.0-36.5); MEAN CORPUSCULAR VOLUME 82.5 fl (80.0-96.0); RED BLOOD COUNT 4.05 10^6/uL (4.00-5.40); WHITE BLOOD COUNT 6.6 10^3/uL (4.0-10.0)
[2023-07-20] MEDS: LEVOTHYROXINE 100MCG TABLET (0.1MG) PO SCH (06:05)
[2023-07-20 06:06] LABS: PLATELET COUNT, AUTOMATED 268 10^3/uL (150-450)
[2023-07-20 06:27] LABS: ALBUMIN 2.3 G/DL (3.2-5.2); ALKALINE PHOSPHATASE 59 U/L (46-116); ALT/SGPT 12 U/L (7.0-40); AST/SGOT 29 U/L (<34); BILIRUBIN,TOTAL 0.3 MG/DL (0.3-1.2); BLOOD UREA NITROGEN 15 MG/DL (9-23); CALCIUM LEVEL 7.7 MG/DL (8.3-10.6); CARBON DIOXIDE LEVEL 23 MMOL/L (20-31); CHLORIDE LEVEL 110 MMOL/L (98-107); CREATININE FOR GFR 0.89 MG/DL (0.55-1.30); GLOMERULAR FILTRATION RATE > 60.0 (>32); GLUCOSE, FASTING 90 MG/DL (74-106); MAGNESIUM LEVEL 1.9 MG/DL (1.8-2.4); POTASSIUM SERUM 3.9 MMOL/L (3.5-5.1); SODIUM LEVEL 137 MMOL/L (136-145)
[2023-07-20 08:24] VITALS: BP 113/75; TEMP 96.6; O2SAT 96
[2023-07-20 13:25] VITALS: BP 117/57; TEMP 96.5; O2SAT 95
[2023-07-20] MEDS: POLYETHYLENE GLYCOL (MIRALAX) 238GM BOTTLE PO ONE (17:30)
[2023-07-20 19:47] VITALS: BP 119/59; TEMP 97.2; O2SAT 96
[2023-07-21] VITALS (8 sets, daily range): BP systolic 80–110; BP diastolic 44–70; TEMP 96.4–96.9; O2SAT 95–97
[2023-07-21] MEDS: NS 1,000 ML IV ONE ×2 (10:21→17:42)
[2023-07-21] MEDS ORDERED: propofoL 200 MG/20 ML VIAL As Ordered ONE (10:43)
[2023-07-21] MEDS ORDERED: PHENYLephrine 500MCG 5ML (100MCG/ML) SYRINGE As Ordered ONE (10:43)
[2023-07-21] MEDS ORDERED: GLYCOPYRROLATE INJ 0.2 MG/ML 2 ML VIAL As Ordered ONE (10:44)
[2023-07-21] MEDS ORDERED: NS 1,000 ML IV SCH (17:00)
[2023-07-21] MEDS: MIDODRINE 5 MG TAB PO SCH (17:42)
[2023-07-22 04:03] VITALS: BP 128/66; TEMP 98.1; O2SAT 97
[2023-07-22 05:38] LABS: HEMATOCRIT 33.3 % (36.0-47.0); HEMOGLOBIN 10.8 g/dl (12.0-15.5); MEAN CORPUSCULAR HEMOGLOBIN 26.8 pg (27.0-33.0); MEAN CORPUSCULAR HGB CONC 32.4 g/dl (32.0-36.5); MEAN CORPUSCULAR VOLUME 82.6 fl (80.0-96.0); PLATELET COUNT, AUTOMATED 285 10^3/uL (150-450); RED BLOOD COUNT 4.03 10^6/uL (4.00-5.40); WHITE BLOOD COUNT 7.2 10^3/uL (4.0-10.0)
[2023-07-22] MEDS ORDERED: MIDO5TA PO (06:59)
[2023-07-22 07:55] VITALS: BP 131/62; TEMP 96.6; O2SAT 95
== END 2023-07-22 11:59 | disposition home or self-care (01) | DRG 375 ==
LOC: M ED 12:12 → M PCU 15:27 → ENRESERV 15:44
PROVIDERS: ADMIT Internal Medicine; ATTEND General Practice
PROC: 0DBL8ZX Excision of Transverse Colon, Via Natural or Artificial Opening Endoscopic, Diagnostic (ICD-10-PCS; principal; 2023-07-21 13:50)
DX: C18.3 Malignant neoplasm of hepatic flexure (principal); I47.19 Other supraventricular tachycardia; N17.9 Acute kidney failure, unspecified; K56.600 Partial intestinal obstruction, unspecified as to cause; E03.9 Hypothyroidism, unspecified; E78.5 Hyperlipidemia, unspecified; K52.839 Microscopic colitis, unspecified; I48.0 Paroxysmal atrial fibrillation; K64.8 Other hemorrhoids; K57.30 Diverticulosis of large intestine without perforation or abscess without bleeding; I95.9 Hypotension, unspecified; E83.51 Hypocalcemia; E86.0 Dehydration; Z79.01 Long term (current) use of anticoagulants; Z85.3 Personal history of malignant neoplasm of breast; Z92.21 Personal history of antineoplastic chemotherapy; Z79.899 Other long term (current) drug therapy; D72.829 Elevated white blood cell count, unspecified; Z98.0 Intestinal bypass and anastomosis status

== ENCOUNTER 2023-08-02 06:18 | Inpatient (IN) | payer MEDICARE ==
[~2023-08-02] VITALS: Ht 160 cm; Wt 77.2 kg
[2023-08-02] VITALS (8 sets, daily range): BP systolic 90–118; BP diastolic 53–71; TEMP 95.5–98; O2SAT 94–100
[~2023-08-02 06:18] MED LIST changes: +CALC-356 PO; +CITA20TA6 PO; +FLUT15.819 NARES; +MIDO5TA PO; +VITA200012 PO; +VITA200016 PO
[2023-08-02] MEDS: ALVIMOPAN 12 MG CAPSULE (ENTEREG) PO ONE (06:50)
[2023-08-02] MEDS: CelecoXIB 400 MG CAP PO ONE (07:00)
[2023-08-02] MEDS: LR 1,000 ML IV SCH ×2 (07:17→18:13)
[2023-08-02] MEDS: HEPARIN SOD (PORCINE) 5000UNITS/ML 1ML VIAL/SYRINGE SQ ONE (07:40)
[2023-08-02] MEDS ORDERED: MIDO5TA PO (07:41)
[2023-08-02] MEDS ORDERED: HOME MED LIST COMPLETE! XX SCH (07:45)
[2023-08-02] MEDS: ceFAZolin SOD 2 GM in IV 1 EA IV ONE (07:49)
[2023-08-02] MEDS: metroNIDAZOLE 500 MG in IV 1 EA IV ONE (07:53)
[2023-08-02] MEDS ORDERED: ROCURONIUM BROMIDE 50MG/5ML VIAL As Ordered ONE (08:24)
[2023-08-02] MEDS ORDERED: PHENYLephrine 500MCG 5ML (100MCG/ML) SYRINGE As Ordered ONE (08:24)
[2023-08-02] MEDS ORDERED: fentaNYL 100 MCG/2 ML INJECTION As Ordered ONE (08:24)
[2023-08-02] MEDS ORDERED: HYDROmorphone HCL 2MG/ML 1ML VIAL As Ordered ONE (08:24)
[2023-08-02] MEDS ORDERED: ACETAMINOPHEN 1000MG 100ML IV BAG As Ordered ONE (08:24)
[2023-08-02] MEDS ORDERED: ONDANSETRON 4MG 2ML VIAL As Ordered ONE (08:24)
[2023-08-02] MEDS ORDERED: LIDOCAINE 2% 100MG/5ML SDV (FOR ANES.) As Ordered ONE (08:24)
[2023-08-02] MEDS ORDERED: propofoL 200 MG/20 ML VIAL As Ordered ONE (08:24)
[2023-08-02] MEDS ORDERED: SUGAMMADEX SODIUM 500 MG/5 ML VIAL (BRIDION) As Ordered ONE (08:24)
[2023-08-02] MEDS ORDERED: ePHEDrine SULFATE 25 MG/5 ML(5MG/ML) SYRINGE As Ordered ONE (08:32)
[2023-08-02] MEDS: LEVOTHYROXINE 100MCG TABLET (0.1MG) PO SCH (09:00)
[2023-08-02] MEDS ORDERED: INDOCYANINE GREEN 25MG VIAL (IC-GREEN) As Ordered ONE (10:10)
[2023-08-02] MEDS: ceFAZolin 2 GM/D5W 50 ML IV BAG As Ordered ONE (11:30)
[2023-08-02] MEDS: LIDOCAINE 1% SDV 30ML VIAL As Ordered ONE (13:18)
[2023-08-02] MEDS ORDERED: ONDANSETRON 4MG 2ML VIAL IV PRN ×2 (13:20→13:35)
[2023-08-02] MEDS ORDERED: ESMOLOL INJ 100MG/10ML VIAL As Ordered ONE (13:25)
[2023-08-02] MEDS ORDERED: fentaNYL 100 MCG/2 ML INJECTION IV PRN (13:35)
[2023-08-02] MEDS ORDERED: oxyCODONE 5MG TAB PO PRN (13:35)
[2023-08-02] MEDS: PHENYLephrine 500MCG 5ML (100MCG/ML) SYRINGE IV PRN (13:57)
[2023-08-02 14:00] LABS: BASO % 0.4 % (0.0-1.0); EOS % 0.3 % (0.0-3.0); HEMATOCRIT 26.6 % (36.0-47.0); HEMOGLOBIN 8.5 g/dl (12.0-15.5); LYMPH # 0.5 10^3/uL (1.5-5.0); LYMPH % 6.1 % (24.0-44.0); MEAN CORPUSCULAR VOLUME 84.4 fl (80.0-96.0); MONO # 0.2 10^3/uL (0.0-0.8); MONO % 1.9 % (2.0-8.0); NEUTROPHILS % 90.9 % (36.0-66.0); PLATELET COUNT, AUTOMATED 226 10^3/uL (150-450); RED BLOOD COUNT 3.15 10^6/uL (4.00-5.40); WHITE BLOOD COUNT 7.7 10^3/uL (4.0-10.0)
[2023-08-02 14:25] LABS: CK-MB VALUE MASS 1.2 NG/ML (<3.6)
[2023-08-02] MEDS: NS 1,000 ML IV STA ×2 (14:26→14:50)
[2023-08-02 14:27] LABS: BLOOD UREA NITROGEN 11 MG/DL (9-23); CARBON DIOXIDE LEVEL 16 MMOL/L (20-31); CHLORIDE LEVEL 109 MMOL/L (98-107); CPK CREATINE PHOSPHOKINASE 55 U/L (34-145); CREATININE FOR GFR 0.64 MG/DL (0.55-1.30); GLOMERULAR FILTRATION RATE > 60.0 (>32); GLUCOSE, FASTING 112 MG/DL (74-106); MAGNESIUM LEVEL 1.2 MG/DL (1.8-2.4); MB/CK RELATIVE INDEX 2.18 (< OR =4); POTASSIUM SERUM 4.1 MMOL/L (3.5-5.1); SODIUM LEVEL 139 MMOL/L (136-145)
[2023-08-02] MEDS: HYDROMORPHONE HCL 0.5 MG/ 0.5 ML SYRINGE IV PRN (16:48)
[2023-08-02] MEDS: MAG SULF 1GM/100ML (MAG RUN) 1 GM in IV 1 EA IV SCH (18:12)
[2023-08-02] MEDS: CitaloPRAM (CeleXA) 20 MG TAB PO SCH (18:16)
[2023-08-02] MEDS: PERCOCET 5MG/325MG TAB PO PRN ×2 (19:40→23:49)
[2023-08-02] MEDS: LR 1,000 ML IV ONE (20:09)
[2023-08-02] MEDS: ALVIMOPAN 12 MG CAPSULE (ENTEREG) PO SCH (20:10)
[2023-08-02] MEDS: ROSUVASTATIN 10 MG TAB (CRESTOR) PO SCH (20:10)
[2023-08-02] MEDS: POTASSIUM CHLORIDE 10MEQ SR TABLET PO SCH (20:11)
[2023-08-02] MEDS: ENOXAPARIN 40MG/0.4ML SYRINGE (J1650 PER 10MG) SC SCH (20:11)
[2023-08-02] MEDS: MIDODRINE 5 MG TAB PO PRN (21:40)
[2023-08-02] MEDS: MORPHINE 4 MG/ML 1ML VIAL IV PRN (21:40)
[2023-08-02] MEDS: ACETAMINOPHEN TAB 650MG DOSE (2X325MG) PO PRN (22:39)
[2023-08-03] VITALS (12 sets, daily range): BP systolic 72–189; BP diastolic 38–84; TEMP 96.2–98.4; O2SAT 92–99
[2023-08-03] MEDS: ACETAMINOPHEN *IV* 1,000 MG in IV 1 EA IV ONE (00:53)
[2023-08-03] MEDS: KETOROLAC 30 MG/ML 1ML VIAL IV SCH (05:51)
[2023-08-03 06:56] LABS: BASO % 0.4 % (0.0-1.0); EOS % 0.1 % (0.0-3.0); HEMATOCRIT 31.3 % (36.0-47.0); HEMOGLOBIN 10.1 g/dl (12.0-15.5); LYMPH # 1.1 10^3/uL (1.5-5.0); LYMPH % 10.8 % (24.0-44.0); MEAN CORPUSCULAR HEMOGLOBIN 27.1 pg (27.0-33.0); MEAN CORPUSCULAR HGB CONC 32.3 g/dl (32.0-36.5); MEAN CORPUSCULAR VOLUME 83.9 fl (80.0-96.0); MONO # 0.5 10^3/uL (0.0-0.8); MONO % 5.3 % (2.0-8.0); NEUTROPHILS # 8.2 10^3/uL (1.5-8.5); NEUTROPHILS % 83.1 % (36.0-66.0); PLATELET COUNT, AUTOMATED 274 10^3/uL (150-450); RED BLOOD COUNT 3.73 10^6/uL (4.00-5.40); WHITE BLOOD COUNT 9.9 10^3/uL (4.0-10.0)
[2023-08-03 07:43] LABS: BLOOD UREA NITROGEN 9 MG/DL (9-23); CALCIUM LEVEL 7.3 MG/DL (8.3-10.6); CARBON DIOXIDE LEVEL 25 MMOL/L (20-31); CHLORIDE LEVEL 108 MMOL/L (98-107); CREATININE FOR GFR 0.83 MG/DL (0.55-1.30); GLOMERULAR FILTRATION RATE > 60.0 (>32); GLUCOSE, FASTING 115 MG/DL (74-106); MAGNESIUM LEVEL 2.5 MG/DL (1.8-2.4); POTASSIUM SERUM 4.2 MMOL/L (3.5-5.1); SODIUM LEVEL 136 MMOL/L (136-145)
[2023-08-03] MEDS ORDERED: PILL CUTTER 1 EACH XX ONE (08:24)
[2023-08-03] MEDS: MIDODRINE 5 MG TAB PO SCH (08:26)
[2023-08-03] MEDS: LEVOTHYROXINE 100MCG TABLET (0.1MG) PO SCH (08:27)
[2023-08-03] MEDS ORDERED: NS 1,000 ML IV SCH (10:55)
[2023-08-03] MEDS: NS 1,000 ML IV ONE (11:04)
[2023-08-03] MEDS ORDERED: MIDAZOLAM INJ 2MG/2ML VIAL As Ordered ONE (11:19)
[2023-08-03] MEDS ORDERED: ETOMIDATE INJ 20MG/10ML VIAL As Ordered ONE (11:30)
[2023-08-03] MEDS ORDERED: CALCIUM CHLORIDE 10% 1 GM/10 ML SYR As Ordered ONE (12:07)
[2023-08-03] MEDS ORDERED: PHENYLEPHRINE 10MG/ML 1ML VIAL As Ordered ONE (12:11)
[2023-08-03] MEDS ORDERED: VASOPRESSIN INJ 20UNITS/ML 1ML VIAL As Ordered ONE (12:17)
[2023-08-03] MEDS: ZOSYN 3.375GM VIAL As Ordered ONE (12:27)
[2023-08-03] MEDS: PIPERACILLIN/TAZOBACTAM SOD 3.375 GM in D5W MINI-BAG PLUS 50 ML IV SCH (12:35)
[2023-08-03] MEDS ORDERED: HYDROMORPHONE HCL 0.5 MG/ 0.5 ML SYRINGE IV PRN (14:50)
[2023-08-03] MEDS ORDERED: ONDANSETRON 4MG 2ML VIAL IV PRN (14:50)
[2023-08-03] MEDS: LR 1,000 ML IV SCH ×2 (14:50→17:22)
[2023-08-03] MEDS ORDERED: oxyCODONE 5MG TAB PO PRN (14:50)
[2023-08-03] MEDS: fentaNYL 100 MCG/2 ML INJECTION IV PRN (15:32)
[2023-08-03] MEDS: ONDANSETRON 4MG 2ML VIAL IV PRN (18:53)
[2023-08-04 02:00] VITALS: BP 162/76; TEMP 97.2; O2SAT 97
[2023-08-04 03:53] LABS: BASO % 0.2 % (0.0-1.0); HEMATOCRIT 44.4 % (36.0-47.0); LYMPH # 0.8 10^3/uL (1.5-5.0); MEAN CORPUSCULAR HEMOGLOBIN 27.4 pg (27.0-33.0); MEAN CORPUSCULAR HGB CONC 32.4 g/dl (32.0-36.5); MEAN CORPUSCULAR VOLUME 84.4 fl (80.0-96.0); MONO # 0.8 10^3/uL (0.0-0.8); MONO % 5.1 % (2.0-8.0); NEUTROPHILS # 14.4 10^3/uL (1.5-8.5); NEUTROPHILS % 89.3 % (36.0-66.0); PLATELET COUNT, AUTOMATED 289 10^3/uL (150-450); RED BLOOD COUNT 5.26 10^6/uL (4.00-5.40); WHITE BLOOD COUNT 16.1 10^3/uL (4.0-10.0)
[2023-08-04 03:57] LABS: HEMOGLOBIN 14.4 g/dl (12.0-15.5)
[2023-08-04 04:22] LABS: BLOOD UREA NITROGEN 8 MG/DL (9-23); CALCIUM LEVEL 7.6 MG/DL (8.3-10.6); CARBON DIOXIDE LEVEL 24 MMOL/L (20-31); CHLORIDE LEVEL 104 MMOL/L (98-107); CREATININE FOR GFR 0.86 MG/DL (0.55-1.30); GLOMERULAR FILTRATION RATE > 60.0 (>32); GLUCOSE, FASTING 134 MG/DL (74-106); POTASSIUM SERUM 4.3 MMOL/L (3.5-5.1); SODIUM LEVEL 136 MMOL/L (136-145)
[2023-08-04 04:33] VITALS: BP 136/60; TEMP 96.4; O2SAT 94
[2023-08-04] MEDS: ONDANSETRON 4MG TAB PO SCH (06:27)
[2023-08-04] MEDS ORDERED: MIDODRINE 5 MG TAB PO PRN (06:40)
[2023-08-04 07:47] VITALS: BP 110/80; TEMP 97.4; O2SAT 95
[2023-08-04] MEDS: NS 1,000 ML IV SCH (08:10)
[2023-08-04] MEDS: DIGOXIN INJ 0.5 MG/2 ML AMP IV STA ×3 (08:12→16:09)
[2023-08-04] MEDS: NS 1,000 ML IV ONE (09:11)
[2023-08-04 16:00] VITALS: TEMP 97.6; O2SAT 97
[2023-08-04] MEDS ORDERED: DIGOXIN INJ 0.5 MG/2 ML AMP IV STA (17:59)
[2023-08-04] MEDS: NS 500 ML IV ONE (18:19)
[2023-08-05 00:46] VITALS: BP 117/68; TEMP 97.4; O2SAT 94
[2023-08-05 04:15] VITALS: BP 172/68; TEMP 97.4; O2SAT 96
[2023-08-05 04:19] LABS: BASO % 0.3 % (0.0-1.0); EOS % 0.2 % (0.0-3.0); HEMATOCRIT 42.5 % (36.0-47.0); HEMOGLOBIN 13.7 g/dl (12.0-15.5); LYMPH # 1.3 10^3/uL (1.5-5.0); LYMPH % 8.2 % (24.0-44.0); MEAN CORPUSCULAR HEMOGLOBIN 26.9 pg (27.0-33.0); MEAN CORPUSCULAR HGB CONC 32.2 g/dl (32.0-36.5); MEAN CORPUSCULAR VOLUME 83.5 fl (80.0-96.0); MONO % 6.3 % (2.0-8.0); NEUTROPHILS # 12.8 10^3/uL (1.5-8.5); NEUTROPHILS % 83.9 % (36.0-66.0); PLATELET COUNT, AUTOMATED 274 10^3/uL (150-450); RED BLOOD COUNT 5.09 10^6/uL (4.00-5.40); WHITE BLOOD COUNT 15.2 10^3/uL (4.0-10.0)
[2023-08-05 08:00] VITALS: BP 109/63; TEMP 97.9; O2SAT 96
[2023-08-05 08:46] LABS: ALBUMIN 1.9 G/DL (3.2-5.2); ALKALINE PHOSPHATASE 70 U/L (46-116); ALT/SGPT 10 U/L (7.0-40); AST/SGOT 28 U/L (<34); BILIRUBIN,TOTAL 0.6 MG/DL (0.3-1.2); BLOOD UREA NITROGEN 10 MG/DL (9-23); CALCIUM LEVEL 7.4 MG/DL (8.3-10.6); CARBON DIOXIDE LEVEL 29 MMOL/L (20-31); CHLORIDE LEVEL 103 MMOL/L (98-107); CREATININE FOR GFR 0.91 MG/DL (0.55-1.30); GLOMERULAR FILTRATION RATE > 60.0 (>32); GLUCOSE, FASTING 95 MG/DL (74-106); POTASSIUM SERUM 3.5 MMOL/L (3.5-5.1); SODIUM LEVEL 138 MMOL/L (136-145); TOTAL PROTEIN 4.7 G/DL (5.7-8.2)
[2023-08-05] MEDS ORDERED: DIGOXIN 0.125 MG TAB PO SCH (09:00)
[2023-08-05] MEDS ORDERED: METOPROLOL TART 25 MG TABLET PO SCH (09:00)
[2023-08-05] MEDS: CelecoXIB (CeleBREX) 100 MG CAP PO SCH (09:07)
[2023-08-05 12:00] VITALS: BP 103/65; TEMP 97.3; O2SAT 95
[2023-08-05 16:00] VITALS: BP 129/74; TEMP 97.5; O2SAT 95
[2023-08-05 18:30] VITALS: BP 95/58; TEMP 97.6; O2SAT 95
[2023-08-05] MEDS: NS 500 ML IV ONE (18:52)
[2023-08-05] MEDS: RAMELTEON 8 MG TAB (ROZEREM) PO PRN (21:32)
[2023-08-06 00:18] VITALS: BP 117/62; TEMP 97.5; O2SAT 94
[2023-08-06] MEDS: traZODone 50 MG TAB PO PRN (01:49)
[2023-08-06 04:00] VITALS: BP 130/63; TEMP 97.2; O2SAT 95
[2023-08-06 07:26] VITALS: BP 125/69; TEMP 96.6; O2SAT 94
[2023-08-06 07:29] LABS: BASO # 0.1 10^3/uL (0.0-0.2); BASO % 0.5 % (0.0-1.0); EOS # 0.4 10^3/uL (0.0-0.5); EOS % 3.1 % (0.0-3.0); HEMATOCRIT 36.9 % (36.0-47.0); HEMOGLOBIN 12.1 g/dl (12.0-15.5); LYMPH # 1.4 10^3/uL (1.5-5.0); LYMPH % 10.5 % (24.0-44.0); MEAN CORPUSCULAR HEMOGLOBIN 27.4 pg (27.0-33.0); MEAN CORPUSCULAR HGB CONC 32.8 g/dl (32.0-36.5); MEAN CORPUSCULAR VOLUME 83.5 fl (80.0-96.0); MONO # 0.8 10^3/uL (0.0-0.8); MONO % 6.2 % (2.0-8.0); NEUTROPHILS # 10.3 10^3/uL (1.5-8.5); NEUTROPHILS % 79.2 % (36.0-66.0); PLATELET COUNT, AUTOMATED 271 10^3/uL (150-450); RED BLOOD COUNT 4.42 10^6/uL (4.00-5.40)
[2023-08-06 07:32] LABS: BLOOD UREA NITROGEN 15 MG/DL (9-23); CALCIUM LEVEL 7.2 MG/DL (8.3-10.6); CARBON DIOXIDE LEVEL 29 MMOL/L (20-31); CHLORIDE LEVEL 104 MMOL/L (98-107); CREATININE FOR GFR 0.93 MG/DL (0.55-1.30); GLOMERULAR FILTRATION RATE > 60.0 (>32); GLUCOSE, FASTING 83 MG/DL (74-106); SODIUM LEVEL 140 MMOL/L (136-145)
[2023-08-06] MEDS: DIGOXIN INJ 0.5 MG/2 ML AMP IV STA ×2 (10:42→12:58)
[2023-08-06 11:36] VITALS: BP 121/81; TEMP 96.9; O2SAT 94
[2023-08-06] MEDS: NS 500 ML IV ONE (13:10)
[2023-08-06] MEDS ORDERED: GLUCOSE 4 GM CHEW PO PRN (18:40)
[2023-08-06] MEDS ORDERED: DEXTROSE 50% 50ML SYRINGE IV PRN (18:40)
[2023-08-06] MEDS ORDERED: GLUCAGON INJ 1MG VIAL SC PRN (18:40)
[2023-08-06] MEDS: KCL 10MEQ/100ML SWI (KRUN) 10 MEQ in IV 1 EA IV SCH (18:48)
[2023-08-06 19:27] VITALS: BP 129/76; TEMP 97; O2SAT 93
[2023-08-06 19:45] LABS: CREATININE FOR GFR 0.94 MG/DL (0.55-1.30); GLOMERULAR FILTRATION RATE > 60.0 (>32)
[2023-08-06] MEDS: ENOXAPARIN 120MG/0.8ML SYRINGE SC SCH (20:43)
[2023-08-06 21:56] LABS: CALCIUM LEVEL 6.9 MG/DL (8.3-10.6); CREATININE FOR GFR 0.97 MG/DL (0.55-1.30); GLOMERULAR FILTRATION RATE 58.4 (>32); POTASSIUM SERUM 3.5 MMOL/L (3.5-5.1)
[2023-08-06 23:20] VITALS: BP 122/80; TEMP 97.1; O2SAT 94
[2023-08-07] VITALS (17 sets, daily range): BP systolic 92–210; BP diastolic 54–92; TEMP 97–99.6; O2SAT 89–96
[2023-08-07] MEDS: KCL 10MEQ/100ML SWI (KRUN) 10 MEQ in IV 1 EA IV SCH (02:31)
[2023-08-07 05:36] LABS: BASO # 0.1 10^3/uL (0.0-0.2); BASO % 0.7 % (0.0-1.0); EOS # 0.5 10^3/uL (0.0-0.5); EOS % 4.4 % (0.0-3.0); HEMATOCRIT 40.6 % (36.0-47.0); HEMOGLOBIN 13.2 g/dl (12.0-15.5); LYMPH % 16.7 % (24.0-44.0); MEAN CORPUSCULAR HGB CONC 32.5 g/dl (32.0-36.5); MONO % 8.3 % (2.0-8.0); NEUTROPHILS # 8.4 10^3/uL (1.5-8.5); NEUTROPHILS % 69.4 % (36.0-66.0); PLATELET COUNT, AUTOMATED 310 10^3/uL (150-450); RED BLOOD COUNT 4.89 10^6/uL (4.00-5.40); WHITE BLOOD COUNT 12.1 10^3/uL (4.0-10.0)
[2023-08-07 06:02] LABS: C REACTIVE PROTEIN QUANTITATIV 6.1 MG/DL (<1.0)
[2023-08-07 06:03] LABS: CALCIUM LEVEL 7.4 MG/DL (8.3-10.6); CREATININE FOR GFR 1.11 MG/DL (0.55-1.30)
[2023-08-07 08:20] LABS: DIGOXIN LEVEL 1.7 NG/ML (0.8-2.0)
[2023-08-07] MEDS: METOPROLOL TART 25 MG TABLET PO SCH (08:45)
[2023-08-07] MEDS: AUGMENTIN 875 MG TAB PO SCH (08:45)
[2023-08-07] MEDS: DIGOXIN INJ 0.5 MG/2 ML AMP IV ONE (08:45)
[2023-08-07] MEDS: KETOROLAC 30 MG/ML 1ML VIAL IV ONE (11:14)
[2023-08-07] MEDS: ONDANSETRON 4MG 2ML VIAL IV ONE ×2 (11:14→16:40)
[2023-08-07] MEDS: SIMETHICONE 80MG CHEW TAB PO ONE (11:15)
[2023-08-07] MEDS: DOCUSATE SODIUM 100MG CAPSULE PO SCH (12:41)
[2023-08-07] MEDS: BISACODYL 10MG SUPP PR ONE (14:52)
[2023-08-07] MEDS: FUROSEMIDE 40MG/4ML VIAL IV ONE (16:14)
[2023-08-07] MEDS: NITROGLYCERIN 2% OINT 1 GM *U/D* PKT TOP ONE ×2 (16:14→19:58)
[2023-08-07] MEDS: D5W/0.45% SODIUM CHLORIDE 1,000 ML IV SCH (16:15)
[2023-08-07 16:51] LABS: BILIRUBIN,TOTAL 0.5 MG/DL (0.3-1.2); CREATININE FOR GFR 1.07 MG/DL (0.55-1.30); GLOMERULAR FILTRATION RATE 52.1 (>32); TOTAL PROTEIN 4.7 G/DL (5.7-8.2)
[2023-08-07] MEDS ORDERED: LABETALOL 100MG/20ML VIAL IV ONE (17:30)
[2023-08-07] MEDS ORDERED: hydrALAZINE 20MG/ML 1ML VIAL IV SCH (17:30)
[2023-08-07 18:09] LABS: MB/CK RELATIVE INDEX 7.31 (< OR =4)
[2023-08-07] MEDS: cloNIDine 0.1MG TABLET PO ONE ×2 (18:15→20:29)
[2023-08-07] MEDS: CALCIUM GLUCONATE 1,000 MG in D5W MINI-BAG PLUS 100 ML IV ONE (18:17)
[2023-08-07] MEDS: **hydrALAZINE** 50 MG TAB PO ONE (18:18)
[2023-08-07] MEDS: cloNIDine HCL 0.1 MG/24 HR PATCH TOP SCH (18:20)
[2023-08-07] MEDS ORDERED: cloNIDine 0.1MG TABLET PO ONE (19:00)
[2023-08-07] MEDS: PROMETHAZINE 25MG SUPP PR ONE (19:09)
[2023-08-07] MEDS: BISACODYL 10MG SUPP PR SCH (20:52)
[2023-08-07] MEDS ORDERED: ISOVUE-370 76% 100ML VIAL As Ordered ONE (21:17)
[2023-08-07 21:24] LABS: HEMATOCRIT 38.4 % (36.0-47.0); HEMOGLOBIN 12.6 g/dl (12.0-15.5); MEAN CORPUSCULAR HEMOGLOBIN 27.1 pg (27.0-33.0); MEAN CORPUSCULAR HGB CONC 32.8 g/dl (32.0-36.5); MEAN CORPUSCULAR VOLUME 82.6 fl (80.0-96.0); PLATELET COUNT, AUTOMATED 302 10^3/uL (150-450); RED BLOOD COUNT 4.65 10^6/uL (4.00-5.40); WHITE BLOOD COUNT 13.8 10^3/uL (4.0-10.0)
[2023-08-07 22:21] LABS: ALBUMIN 1.8 G/DL (3.2-5.2); BILIRUBIN,TOTAL 0.4 MG/DL (0.3-1.2); CALCIUM LEVEL 7.9 MG/DL (8.3-10.6); CREATININE FOR GFR 1.18 MG/DL (0.55-1.30); GLOMERULAR FILTRATION RATE 46.6 (>32); POTASSIUM SERUM 3.8 MMOL/L (3.5-5.1); TOTAL PROTEIN 4.4 G/DL (5.7-8.2)
[2023-08-08] VITALS (12 sets, daily range): BP systolic 96–147; BP diastolic 46–57; TEMP 96.4–98.6; O2SAT 91–96
[2023-08-08] MEDS: PIPERACILLIN/TAZOBACTAM SOD 3.375 GM in D5W MINI-BAG PLUS 50 ML IV SCH (00:06)
[2023-08-08] MEDS: ONDANSETRON 4MG 2ML VIAL IV SCH (00:06)
[2023-08-08] MEDS: SIMETHICONE 80MG CHEW TAB PO ONE (01:55)
[2023-08-08] MEDS ORDERED: D5W/0.45% SODIUM CHLORIDE 1,000 ML IV SCH (07:25)
[2023-08-08 07:38] LABS: ALBUMIN 1.8 G/DL (3.2-5.2); ALKALINE PHOSPHATASE 61 U/L (46-116); ALT/SGPT < 9 U/L (7.0-40); AST/SGOT 15 U/L (<34); BILIRUBIN,TOTAL 0.5 MG/DL (0.3-1.2); BLOOD UREA NITROGEN 26 MG/DL (9-23); CALCIUM LEVEL 7.7 MG/DL (8.3-10.6); CARBON DIOXIDE LEVEL 30 MMOL/L (20-31); CHLORIDE LEVEL 104 MMOL/L (98-107); CK-MB VALUE MASS 1.9 NG/ML (<3.6); CPK CREATINE PHOSPHOKINASE 34 U/L (34-145); CREATININE FOR GFR 1.36 MG/DL (0.55-1.30); GLOMERULAR FILTRATION RATE 39.5 (>32); GLUCOSE, FASTING 145 MG/DL (74-106); MB/CK RELATIVE INDEX 5.58 (< OR =4); POTASSIUM SERUM 3.6 MMOL/L (3.5-5.1); SODIUM LEVEL 138 MMOL/L (136-145); TOTAL PROTEIN 4.2 G/DL (5.7-8.2)
[2023-08-08 07:40] LABS: BASO % 0.3 % (0.0-1.0); EOS # 0.1 10^3/uL (0.0-0.5); HEMATOCRIT 37.4 % (36.0-47.0); HEMOGLOBIN 12.2 g/dl (12.0-15.5); LYMPH # 1.3 10^3/uL (1.5-5.0); LYMPH % 9.9 % (24.0-44.0); MEAN CORPUSCULAR HEMOGLOBIN 27.1 pg (27.0-33.0); MEAN CORPUSCULAR HGB CONC 32.6 g/dl (32.0-36.5); MEAN CORPUSCULAR VOLUME 82.9 fl (80.0-96.0); MONO % 7.7 % (2.0-8.0); NEUTROPHILS # 10.6 10^3/uL (1.5-8.5); NEUTROPHILS % 80.5 % (36.0-66.0); PLATELET COUNT, AUTOMATED 260 10^3/uL (150-450); RED BLOOD COUNT 4.51 10^6/uL (4.00-5.40); WHITE BLOOD COUNT 13.2 10^3/uL (4.0-10.0)
[2023-08-08] MEDS: NS 1,000 ML IV ONE ×2 (08:14→14:00)
[2023-08-08] MEDS ORDERED: SODIUM CHLORIDE 0.9% INJ 10 ML SYR IV PRN (12:15)
[2023-08-08] MEDS: LR 1,000 ML IV SCH (15:30)
[2023-08-08] MEDS: KETOROLAC 30 MG/ML 1ML VIAL IV SCH (16:00)
[2023-08-08] MEDS: SODIUM CHLORIDE 0.9% INJ 10 ML SYR IV SCH ×2 (18:26)
[2023-08-08] MEDS: HYDROMORPHONE HCL 0.5 MG/ 0.5 ML SYRINGE IV PRN (23:21)
[2023-08-09 03:54] VITALS: BP 133/63; TEMP 97.5; O2SAT 93
[2023-08-09 06:42] LABS: HEMATOCRIT 34.7 % (36.0-47.0); HEMOGLOBIN 11.4 g/dl (12.0-15.5); MEAN CORPUSCULAR HEMOGLOBIN 27.4 pg (27.0-33.0); MEAN CORPUSCULAR HGB CONC 32.9 g/dl (32.0-36.5); MEAN CORPUSCULAR VOLUME 83.4 fl (80.0-96.0); PLATELET COUNT, AUTOMATED 255 10^3/uL (150-450); RED BLOOD COUNT 4.16 10^6/uL (4.00-5.40); WHITE BLOOD COUNT 16.1 10^3/uL (4.0-10.0)
[2023-08-09 06:58] LABS: C REACTIVE PROTEIN QUANTITATIV 20.7 MG/DL (<1.0)
[2023-08-09 07:29] VITALS: BP 164/62; TEMP 97.4; O2SAT 97
[2023-08-09 09:15] LABS: CALCIUM LEVEL 7.1 MG/DL (8.3-10.6); CREATININE FOR GFR 1.07 MG/DL (0.55-1.30); GLOMERULAR FILTRATION RATE 52.1 (>32); POTASSIUM SERUM 4.2 MMOL/L (3.5-5.1)
[2023-08-09] MEDS: hydrALAZINE 20MG/ML 1ML VIAL IV SCH ×2 (09:36→12:00)
[2023-08-09] MEDS: HYDROMORPHONE HCL 0.5 MG/ 0.5 ML SYRINGE IV PRN (11:02)
[2023-08-09 11:41] VITALS: BP 143/65; TEMP 96.9; O2SAT 94
[2023-08-09 15:49] VITALS: BP 147/67; TEMP 97.8; O2SAT 92
[2023-08-09] MEDS: AMINO AC/ELECTROLYTE/DEX/CALC 1,000 ML IV SCH (17:50)
[2023-08-09] MEDS: FAT EMULSION IV 250 ML IV ONE (17:50)
[2023-08-09] MEDS: METOPROLOL 5 MG/5 ML VIAL IV SCH (17:51)
[2023-08-09] MEDS: INSULIN LISPRO (NovoLOG) PER UNIT SC SCH (17:59)
[2023-08-09 18:37] VITALS: BP 131/60; TEMP 97.1; O2SAT 93
[2023-08-09 23:40] VITALS: BP 157/66; TEMP 96.7; O2SAT 94
[2023-08-10] VITALS (10 sets, daily range): BP systolic 125–181; BP diastolic 57–80; TEMP 96.7–97.5; O2SAT 91–96
[2023-08-10 06:26] LABS: BASO % 0.2 % (0.0-1.0); EOS # 0.8 10^3/uL (0.0-0.5); EOS % 6.7 % (0.0-3.0); HEMATOCRIT 33.5 % (36.0-47.0); LYMPH # 1.4 10^3/uL (1.5-5.0); LYMPH % 11.4 % (24.0-44.0); MEAN CORPUSCULAR HEMOGLOBIN 27.3 pg (27.0-33.0); MEAN CORPUSCULAR HGB CONC 32.8 g/dl (32.0-36.5); MEAN CORPUSCULAR VOLUME 83.1 fl (80.0-96.0); MONO # 0.9 10^3/uL (0.0-0.8); MONO % 7.4 % (2.0-8.0); NEUTROPHILS # 8.9 10^3/uL (1.5-8.5); NEUTROPHILS % 73.5 % (36.0-66.0); PLATELET COUNT, AUTOMATED 258 10^3/uL (150-450); RED BLOOD COUNT 4.03 10^6/uL (4.00-5.40); WHITE BLOOD COUNT 12.1 10^3/uL (4.0-10.0)
[2023-08-10 06:54] LABS: BLOOD UREA NITROGEN 17 MG/DL (9-23); CALCIUM LEVEL 7.4 MG/DL (8.3-10.6); CARBON DIOXIDE LEVEL 27 MMOL/L (20-31); CHLORIDE LEVEL 104 MMOL/L (98-107); GLOMERULAR FILTRATION RATE > 60.0 (>32); GLUCOSE, FASTING 120 MG/DL (74-106); POTASSIUM SERUM 3.6 MMOL/L (3.5-5.1); SODIUM LEVEL 137 MMOL/L (136-145)
[2023-08-10] MEDS: KETOROLAC 30 MG/ML 1ML VIAL IV ONE (09:55)
[2023-08-10] MEDS: INSULIN LISPRO (NovoLOG) PER UNIT SC SCH ×2 (12:38→21:00)
[2023-08-10] MEDS: atenoloL 25 MG TAB PO ONE (14:03)
[2023-08-10] MEDS: METOPROLOL 5 MG/5 ML VIAL IV SCH (18:00)
[2023-08-10] MEDS ORDERED: INSULIN LISPRO (NovoLOG) PER UNIT SC SCH (18:00)
[2023-08-10] MEDS: MULTIVITAMIN -ADULT INJECTION 10 ML, ZINC/COPPER/MANGANESE/SELENIUM 1 ML in AMINO AC/EL... IV SCH (18:04)
[2023-08-10] MEDS: FAT EMULSION IV 250 ML IV ONE (18:04)
[2023-08-11] VITALS (10 sets, daily range): BP systolic 137–176; BP diastolic 60–76; TEMP 96.3–97.7; O2SAT 92–95
[2023-08-11] MEDS: hydrALAZINE 20MG/ML 1ML VIAL IV ONE (00:03)
[2023-08-11 06:41] LABS: BASO # 0.1 10^3/uL (0.0-0.2); BASO % 0.7 % (0.0-1.0); EOS # 0.8 10^3/uL (0.0-0.5); EOS % 8.8 % (0.0-3.0); HEMATOCRIT 33.5 % (36.0-47.0); HEMOGLOBIN 10.9 g/dl (12.0-15.5); LYMPH # 1.6 10^3/uL (1.5-5.0); LYMPH % 18.4 % (24.0-44.0); MEAN CORPUSCULAR HGB CONC 32.5 g/dl (32.0-36.5); MEAN CORPUSCULAR VOLUME 83.1 fl (80.0-96.0); MONO # 0.6 10^3/uL (0.0-0.8); MONO % 7.2 % (2.0-8.0); NEUTROPHILS # 5.6 10^3/uL (1.5-8.5); NEUTROPHILS % 64.1 % (36.0-66.0); PLATELET COUNT, AUTOMATED 242 10^3/uL (150-450); RED BLOOD COUNT 4.03 10^6/uL (4.00-5.40); WHITE BLOOD COUNT 8.7 10^3/uL (4.0-10.0)
[2023-08-11 07:00] LABS: BLOOD UREA NITROGEN 17 MG/DL (9-23); CALCIUM LEVEL 7.6 MG/DL (8.3-10.6); CARBON DIOXIDE LEVEL 28 MMOL/L (20-31); CHLORIDE LEVEL 104 MMOL/L (98-107); CREATININE FOR GFR 0.71 MG/DL (0.55-1.30); GLOMERULAR FILTRATION RATE > 60.0 (>32); GLUCOSE, FASTING 127 MG/DL (74-106); POTASSIUM SERUM 3.5 MMOL/L (3.5-5.1); SODIUM LEVEL 137 MMOL/L (136-145)
[2023-08-11] MEDS ORDERED: PERCOCET 5MG/325MG TAB PO PRN (07:45)
[2023-08-11] MEDS ORDERED: MORPHINE 4 MG/ML 1ML VIAL IV PRN (07:45)
[2023-08-11] MEDS: **hydrALAZINE** 10 MG TAB PO SCH (08:03)
[2023-08-11] MEDS: SODIUM CHLORIDE 0.9% INJ 10 ML SYR IV PRN (08:05)
[2023-08-11] MEDS: PERCOCET 5MG/325MG TAB PO PRN (08:17)
[2023-08-11] MEDS ORDERED: ONDANSETRON 4MG 2ML VIAL IV PRN (14:45)
[2023-08-12] VITALS (7 sets, daily range): BP systolic 145–172; BP diastolic 58–78; TEMP 96.7–97.7; O2SAT 93–95
[2023-08-12 04:55] LABS: BASO # 0.1 10^3/uL (0.0-0.2); EOS # 0.6 10^3/uL (0.0-0.5); EOS % 7.2 % (0.0-3.0); HEMATOCRIT 35.6 % (36.0-47.0); HEMOGLOBIN 11.8 g/dl (12.0-15.5); LYMPH # 1.3 10^3/uL (1.5-5.0); MEAN CORPUSCULAR HEMOGLOBIN 27.2 pg (27.0-33.0); MEAN CORPUSCULAR HGB CONC 33.1 g/dl (32.0-36.5); MONO # 0.6 10^3/uL (0.0-0.8); MONO % 7.2 % (2.0-8.0); NEUTROPHILS # 5.8 10^3/uL (1.5-8.5); NEUTROPHILS % 68.6 % (36.0-66.0); PLATELET COUNT, AUTOMATED 289 10^3/uL (150-450); RED BLOOD COUNT 4.34 10^6/uL (4.00-5.40); WHITE BLOOD COUNT 8.4 10^3/uL (4.0-10.0)
[2023-08-12 05:24] LABS: BLOOD UREA NITROGEN 12 MG/DL (9-23); CALCIUM LEVEL 7.5 MG/DL (8.3-10.6); CARBON DIOXIDE LEVEL 30 MMOL/L (20-31); CHLORIDE LEVEL 103 MMOL/L (98-107); CREATININE FOR GFR 0.73 MG/DL (0.55-1.30); GLOMERULAR FILTRATION RATE > 60.0 (>32); GLUCOSE, FASTING 84 MG/DL (74-106); POTASSIUM SERUM 3.6 MMOL/L (3.5-5.1); SODIUM LEVEL 137 MMOL/L (136-145)
[2023-08-12] MEDS: LOSARTAN 50MG TABLET PO ONE (09:04)
[2023-08-12] MEDS: LOSARTAN 50MG TABLET PO SCH (21:06)
[2023-08-12] MEDS ORDERED: PILL CUTTER 1 EACH XX PRN (22:20)
[2023-08-12] MEDS: zolPIDEM TARTRATE 5 MG TAB PO SCH (22:35)
[2023-08-13 06:00] VITALS: BP 161/67; TEMP 97.2; O2SAT 94
[2023-08-13 07:05] LABS: BASO # 0.1 10^3/uL (0.0-0.2); EOS # 0.8 10^3/uL (0.0-0.5); EOS % 8.6 % (0.0-3.0); HEMATOCRIT 35.3 % (36.0-47.0); HEMOGLOBIN 11.5 g/dl (12.0-15.5); LYMPH # 1.3 10^3/uL (1.5-5.0); LYMPH % 14.2 % (24.0-44.0); MEAN CORPUSCULAR HEMOGLOBIN 26.9 pg (27.0-33.0); MEAN CORPUSCULAR HGB CONC 32.6 g/dl (32.0-36.5); MEAN CORPUSCULAR VOLUME 82.5 fl (80.0-96.0); MONO # 0.8 10^3/uL (0.0-0.8); MONO % 8.1 % (2.0-8.0); NEUTROPHILS # 6.3 10^3/uL (1.5-8.5); NEUTROPHILS % 67.1 % (36.0-66.0); PLATELET COUNT, AUTOMATED 344 10^3/uL (150-450); RED BLOOD COUNT 4.28 10^6/uL (4.00-5.40); WHITE BLOOD COUNT 9.4 10^3/uL (4.0-10.0)
[2023-08-13 07:31] LABS: BLOOD UREA NITROGEN 10 MG/DL (9-23); CALCIUM LEVEL 7.2 MG/DL (8.3-10.6); CARBON DIOXIDE LEVEL 30 MMOL/L (20-31); CHLORIDE LEVEL 103 MMOL/L (98-107); CREATININE FOR GFR 0.82 MG/DL (0.55-1.30); GLOMERULAR FILTRATION RATE > 60.0 (>32); GLUCOSE, FASTING 81 MG/DL (74-106); POTASSIUM SERUM 3.7 MMOL/L (3.5-5.1); SODIUM LEVEL 138 MMOL/L (136-145)
[2023-08-13 14:00] VITALS: BP 157/64; TEMP 97.3; O2SAT 96
[2023-08-13] MEDS: ENOXAPARIN 40MG/0.4ML SYRINGE (J1650 PER 10MG) SC ONE (17:58)
[2023-08-13 21:10] VITALS: BP 145/58; TEMP 97.5; O2SAT 95
[2023-08-13] MEDS: METOPROLOL TART 12.5 MG PER 1/2 TAB PO SCH (21:52)
[2023-08-14 05:54] VITALS: BP 150/57; TEMP 97.2; O2SAT 94
[2023-08-14 06:51] LABS: BASO # 0.1 10^3/uL (0.0-0.2); BASO % 0.9 % (0.0-1.0); EOS # 0.8 10^3/uL (0.0-0.5); EOS % 7.8 % (0.0-3.0); HEMOGLOBIN 11.2 g/dl (12.0-15.5); LYMPH # 1.6 10^3/uL (1.5-5.0); LYMPH % 16.3 % (24.0-44.0); MEAN CORPUSCULAR HEMOGLOBIN 27.1 pg (27.0-33.0); MEAN CORPUSCULAR HGB CONC 32.9 g/dl (32.0-36.5); MEAN CORPUSCULAR VOLUME 82.1 fl (80.0-96.0); MONO % 9.9 % (2.0-8.0); NEUTROPHILS # 6.2 10^3/uL (1.5-8.5); NEUTROPHILS % 64.2 % (36.0-66.0); PLATELET COUNT, AUTOMATED 355 10^3/uL (150-450); RED BLOOD COUNT 4.14 10^6/uL (4.00-5.40); WHITE BLOOD COUNT 9.7 10^3/uL (4.0-10.0)
[2023-08-14 07:13] LABS: BLOOD UREA NITROGEN 10 MG/DL (9-23); CALCIUM LEVEL 7.7 MG/DL (8.3-10.6); CARBON DIOXIDE LEVEL 28 MMOL/L (20-31); CHLORIDE LEVEL 103 MMOL/L (98-107); CREATININE FOR GFR 0.82 MG/DL (0.55-1.30); GLOMERULAR FILTRATION RATE > 60.0 (>32); GLUCOSE, FASTING 82 MG/DL (74-106); SODIUM LEVEL 138 MMOL/L (136-145)
[2023-08-14 08:01] VITALS: BP 131/58
[2023-08-14] MEDS: ENOXAPARIN 40MG/0.4ML SYRINGE (J1650 PER 10MG) SC SCH (08:01)
[2023-08-14] MEDS ORDERED: METO1TAB87 PO (11:23)
[2023-08-14] MEDS ORDERED: LOSA-528 PO (11:23)
== END 2023-08-14 13:35 | disposition home or self-care (01) | DRG 329 ==
LOC: M OR 06:18 → M PCU 16:51 → M MSPAV 08-07 15:12 → M PCU 08-08 17:01 → M MSPAV 08-12 17:56
PROVIDERS: ADMIT Surgery; ATTEND Hospitalist
PROC: 0FT44ZZ Resection of Gallbladder, Percutaneous Endoscopic Approach (ICD-10-PCS; 2023-08-02)
PROC: 8E0W4CZ Robotic Assisted Procedure of Trunk Region, Percutaneous Endoscopic Approach (ICD-10-PCS; 2023-08-02)
PROC: 0DTK4ZZ Resection of Ascending Colon, Percutaneous Endoscopic Approach (ICD-10-PCS; principal; 2023-08-02 07:30)
PROC: 0DQ80ZZ Repair Small Intestine, Open Approach (ICD-10-PCS; 2023-08-03)
PROC: 0UT00ZZ Resection of Right Ovary, Open Approach (ICD-10-PCS; 2023-08-03)
PROC: 0DB80ZZ Excision of Small Intestine, Open Approach (ICD-10-PCS; 2023-08-08)
DX: C18.3 Malignant neoplasm of hepatic flexure (principal); J18.9 Pneumonia, unspecified organism; I21.4 Non-ST elevation (NSTEMI) myocardial infarction; K65.9 Peritonitis, unspecified; I21.A1 Myocardial infarction type 2; I50.32 Chronic diastolic (congestive) heart failure; I47.10 Supraventricular tachycardia, unspecified; E87.20 Acidosis, unspecified; I82.611 Acute embolism and thrombosis of superficial veins of right upper extremity; K91.72 Accidental puncture and laceration of a digestive system organ or structure during other procedure; R44.3 Hallucinations, unspecified; I48.20 Chronic atrial fibrillation, unspecified; I47.20 Ventricular tachycardia, unspecified; J98.11 Atelectasis; N17.9 Acute kidney failure, unspecified; I48.0 Paroxysmal atrial fibrillation; I11.0 Hypertensive heart disease with heart failure; E03.9 Hypothyroidism, unspecified; E78.5 Hyperlipidemia, unspecified; E83.42 Hypomagnesemia; K21.9 Gastro-esophageal reflux disease without esophagitis; I16.0 Hypertensive urgency; K76.89 Other specified diseases of liver; E87.6 Hypokalemia; E83.51 Hypocalcemia; E88.09 Other disorders of plasma-protein metabolism, not elsewhere classified; F32.A Depression, unspecified; F41.9 Anxiety disorder, unspecified; M19.90 Unspecified osteoarthritis, unspecified site; D27.1 Benign neoplasm of left ovary; Z79.01 Long term (current) use of anticoagulants; E11.9 Type 2 diabetes mellitus without complications

== ENCOUNTER → 2023-08-22 | Outpatient (REF) | payer MEDICARE ==
[~2023-08-22] MED LIST changes: +LOSA-528 PO; +METO1TAB87 PO
[2023-08-22 18:12] LABS: BASO # 0.2 10^3/uL (0.0-0.2); BASO % 1.9 % (0.0-1.0); EOS # 0.7 10^3/uL (0.0-0.5); EOS % 8.3 % (0.0-3.0); HEMATOCRIT 37.6 % (36.0-47.0); HEMOGLOBIN 12.1 g/dl (12.0-15.5); LYMPH % 24.9 % (24.0-44.0); MEAN CORPUSCULAR HEMOGLOBIN 27.4 pg (27.0-33.0); MEAN CORPUSCULAR HGB CONC 32.2 g/dl (32.0-36.5); MEAN CORPUSCULAR VOLUME 85.3 fl (80.0-96.0); MONO # 0.8 10^3/uL (0.0-0.8); MONO % 10.4 % (2.0-8.0); NEUTROPHILS # 4.4 10^3/uL (1.5-8.5); NEUTROPHILS % 54.3 % (36.0-66.0); PLATELET COUNT, AUTOMATED 519 10^3/uL (150-450); RED BLOOD COUNT 4.41 10^6/uL (4.00-5.40)
[2023-08-22 18:31] LABS: ALBUMIN 2.7 G/DL (3.2-5.2); BILIRUBIN,TOTAL 0.4 MG/DL (0.3-1.2); CALCIUM LEVEL 8.7 MG/DL (8.3-10.6); CREATININE FOR GFR 1.13 MG/DL (0.55-1.30); FERRITIN 48.2 NG/ML (7.3-270.7); POTASSIUM SERUM 4.9 MMOL/L (3.5-5.1); TOTAL PROTEIN 5.7 G/DL (5.7-8.2)
== END ==
LOC: M SFHCPLAZ 17:02
PROVIDERS: ATTEND Physician Assistant Medical
DX: C18.3 Malignant neoplasm of hepatic flexure (principal); E87.6 Hypokalemia

== ENCOUNTER → 2024-02-05 | Outpatient (CLI) | payer MEDICARE | LOC: M WHC 10:58 | PROVIDERS: ATTEND Family Medicine | DX: Z12.31 Encounter for screening mammogram for malignant neoplasm of breast (principal); N64.9 Disorder of breast, unspecified | CPT/HCPCS: 77067; G0279 ==

== ENCOUNTER → 2024-04-04 | Outpatient (CLI) | payer MEDICARE ==
[~2024-04-04] MED LIST changes: +ISOVUE-370 76% 100ML VIAL As Ordered ONE
== END ==
LOC: M RAD 10:46
PROVIDERS: ATTEND Dietitian, Registered
DX: C18.9 Malignant neoplasm of colon, unspecified (principal)
CPT/HCPCS: 71260; 74177; Q9967

== ENCOUNTER → 2024-08-07 | Outpatient (CLI) | payer MEDICARE ==
[~2024-08-07] MED LIST changes: +DABIGATRAN
== END ==
LOC: M RAD 09:31
PROVIDERS: ATTEND Nurse Practitioner Women's Health
DX: C34.90 Malignant neoplasm of unspecified part of unspecified bronchus or lung (principal); R91.1 Solitary pulmonary nodule
CPT/HCPCS: 71260; 74177; Q9967

== ENCOUNTER 2024-08-09 08:27 | Emergency (ER) | payer MEDICARE ==
[~2024-08-09] VITALS: Ht 160 cm; Wt 76.8 kg
[~2024-08-09 08:27] MED LIST changes: -DABIGATRAN; -ISOVUE-370 76% 100ML VIAL As Ordered ONE
[2024-08-09 10:15] LABS: BASO # 0.1 10^3/uL (0.0-0.2); BASO % 1.4 % (0.0-1.0); EOS # 0.2 10^3/uL (0.0-0.5); EOS % 2.6 % (0.0-3.0); HEMATOCRIT 41.6 % (36.0-47.0); HEMOGLOBIN 13.2 g/dl (12.0-15.5); LYMPH % 12.8 % (24.0-44.0); MEAN CORPUSCULAR HEMOGLOBIN 29.4 pg (27.0-33.0); MEAN CORPUSCULAR HGB CONC 31.7 g/dl (32.0-36.5); MEAN CORPUSCULAR VOLUME 92.7 fl (80.0-96.0); MONO # 0.6 10^3/uL (0.0-0.8); MONO % 7.9 % (2.0-8.0); NEUTROPHILS % 74.9 % (36.0-66.0); PLATELET COUNT, AUTOMATED 224 10^3/uL (150-450); RED BLOOD COUNT 4.49 10^6/uL (4.00-5.40); WHITE BLOOD COUNT 8.1 10^3/uL (4.0-10.0)
[2024-08-09] MEDS: ACETAMINOPHEN 325 MG TAB PO ONE (10:16)
[2024-08-09 10:53] LABS: CPK CREATINE PHOSPHOKINASE 73 U/L (34-145)
[2024-08-09 10:54] LABS: ALBUMIN 3.6 G/DL (3.2-5.2); ALKALINE PHOSPHATASE 75 U/L (35-104); ALT/SGPT 64 U/L (7.0-40); AST/SGOT 67 U/L (<34); BILIRUBIN,DIRECT 0.4 MG/DL (<0.4); BILIRUBIN,TOTAL 1.3 MG/DL (0.3-1.2); BLOOD UREA NITROGEN 13 MG/DL (9-23); CALCIUM LEVEL 8.7 MG/DL (8.3-10.6); CARBON DIOXIDE LEVEL 28 MMOL/L (20-31); CHLORIDE LEVEL 106 MMOL/L (98-107); CK-MB VALUE MASS < 1.0 NG/ML (<3.6); CREATININE FOR GFR 0.86 MG/DL (0.55-1.30); GLOMERULAR FILTRATION RATE 66.6 (>32); GLUCOSE, FASTING 92 MG/DL (74-106); MB/CK RELATIVE INDEX 1.36 (< OR =4); POTASSIUM SERUM 4.5 MMOL/L (3.5-5.1); SODIUM LEVEL 139 MMOL/L (136-145); TOTAL PROTEIN 6.7 G/DL (5.7-8.2)
[2024-08-09] MEDS ORDERED: ISOVUE-370 76% 100ML VIAL As Ordered ONE (11:18)
[2024-08-09 13:16] VITALS: BP 129/60; TEMP 98.1; O2SAT 95
[2024-08-11] MEDS ORDERED: DABIGATRAN (11:27)
== END 2024-08-09 13:22 | disposition home or self-care (01) ==
LOC: M ED 08:27
DX: R06.02 Shortness of breath (principal); J91.8 Pleural effusion in other conditions classified elsewhere; R00.1 Bradycardia, unspecified; I45.81 Long QT syndrome; I48.91 Unspecified atrial fibrillation; E03.9 Hypothyroidism, unspecified; Z85.3 Personal history of malignant neoplasm of breast; Z85.038 Personal history of other malignant neoplasm of large intestine; Z87.891 Personal history of nicotine dependence; Z79.899 Other long term (current) drug therapy
CPT/HCPCS: 36415; 71045; 71275; 80048; 80076; 82550; 82553; 83880; 84484; 85025; 87486; 87581; 87633; 87798; 93005; 93041; 94760; 99285; Q9967

== ENCOUNTER 2024-10-23 06:57 | Day surgery (SDC) | payer MEDICARE ==
[~2024-10-23] VITALS: Ht 160 cm; Wt 72.7 kg
[~2024-10-23 06:57] MED LIST changes: -AMIO200T49 PO; +AMIO200T54 PO; +DABIGATRAN; +DIGO0.123 PO; +LIDOCAINE 2% 100 MG/5 ML SDV (FOR ANES.) As Ordered ONE; +PRAD150C6 PO
[2024-10-23 08:28] VITALS: BP 108/68; O2SAT 98
== END 2024-10-23 08:28 | disposition home or self-care (01) ==
LOC: M OPP 06:57
PROVIDERS: ATTEND Surgery
DX: K57.30 Diverticulosis of large intestine without perforation or abscess without bleeding (principal); Z98.0 Intestinal bypass and anastomosis status; Z85.038 Personal history of other malignant neoplasm of large intestine; Z79.51 Long term (current) use of inhaled steroids; Z79.899 Other long term (current) drug therapy; Z87.891 Personal history of nicotine dependence

== ENCOUNTER → 2025-03-16 | Outpatient (CLI) | payer MEDICARE ==
[~2025-03-16] MED LIST changes: -LIDOCAINE 2% 100 MG/5 ML SDV (FOR ANES.) As Ordered ONE
[2025-03-16 12:56] LABS: BASO # 0.1 10^3/uL (0.0-0.2); BASO % 1.5 % (0.0-1.0); EOS # 0.3 10^3/uL (0.0-0.5); EOS % 4.1 % (0.0-3.0); LYMPH # 1.3 10^3/uL (1.5-5.0); LYMPH % 22.0 % (24.0-44.0); MONO # 0.8 10^3/uL (0.0-0.8); MONO % 12.6 % (2.0-8.0); NEUTROPHILS # 3.6 10^3/uL (1.5-8.5); NEUTROPHILS % 59.6 % (36.0-66.0); PLATELET COUNT, AUTOMATED 258 10^3/uL (150-450)
[2025-03-16 13:15] LABS: ESTIMATED AVERAGE GLUCOSE 128.0 MG/DL (60-110)
[2025-03-16 13:22] LABS: ALT/SGPT 19.0 U/L (7.0-40); AST/SGOT 26.0 U/L (<34); CALCIUM LEVEL 8.8 MG/DL (8.3-10.6); CARBON DIOXIDE LEVEL 27.0 MMOL/L (20-31); CHLORIDE LEVEL 106.0 MMOL/L (98-107); CHOLESTEROL LEVEL 131.0 MG/DL (<200); CHOLESTEROL RISK RATIO 3.0 (<5); CREATININE FOR GFR 1.03 MG/DL (0.55-1.30); GLOMERULAR FILTRATION RATE 53.3 (>32); LDL CHOLESTEROL 67.2 MG/DL (<100); MAGNESIUM LEVEL 1.9 MG/DL (1.8-2.4); NON-HDL-C 87.4 MG/DL; POTASSIUM SERUM 4.7 MMOL/L (3.5-5.1); SODIUM LEVEL 142.0 MMOL/L (136-145); TRIGLYCERIDES LEVEL 101.0 MG/DL (<150)
[2025-03-16 13:25] LABS: FREE T4 1.13 NG/DL (0.89-1.76); PTH INTACT 60.7 PG/ML (18.5-88.0)
[2025-03-16 13:26] LABS: TOTAL 25(OH) VITAMIN D 77.8 NG/ML (20.0-100.0)
== END ==
LOC: M LAB 10:44
PROVIDERS: ATTEND Family Medicine
DX: E03.9 Hypothyroidism, unspecified (principal); R73.01 Impaired fasting glucose; E55.9 Vitamin D deficiency, unspecified; I50.32 Chronic diastolic (congestive) heart failure; D50.9 Iron deficiency anemia, unspecified; K76.0 Fatty (change of) liver, not elsewhere classified